=== PATIENT | female | born 1930 | race Caucasian/White ===

== ENCOUNTER 2016-12-15 14:51 | Inpatient (IN) | payer OTHER, MEDICARE ==
[2016-12-15] VITALS (9 sets, daily range): BP systolic 120–192; BP diastolic 62–75; PULSE 74–122; RESP 18–22; TEMP 96.5–97.3; O2SAT 94–98
[~2016-12-15] VITALS: Ht 160 cm; Wt 73.6 kg
[~2016-12-15 14:51] MED LIST: ADVA100A INH; ALPR0.25 PO; AMBI10TA PO; ASPI81TA82 PO; ATEN-100 PO; ATOR20TA42 PO; CALCTAB32 PO; COQ-100C5 PO; COZA25TA PO; FISH1000 PO; GLUCTAB PO; LEVO100T4 PO; NITR.4 SL; PREG100 PO; RANI150T PO; TIOT18I INH
[2016-12-15] MEDS ORDERED: methylPREDNISolone SOD SUCC 125 MG/2 ML VIAL IV PUSH ONE (15:15)
[2016-12-15] MEDS ORDERED: ADVA115A INH (15:17)
[2016-12-15] MEDS ORDERED: ALPR0.25 PO (15:17)
[2016-12-15] MEDS ORDERED: NITR1SUB3 SL (15:17)
[2016-12-15] MEDS ORDERED: VITA500T49 PO (15:17)
[2016-12-15] MEDS ORDERED: LYRI50CA PO (15:17)
[2016-12-15] MEDS ORDERED: CALC600T25 PO (15:17)
[2016-12-15] MEDS ORDERED: ASPI81CH CHEW (15:17)
[2016-12-15] MEDS ORDERED: ATEN25TA PO (15:17)
[2016-12-15] MEDS ORDERED: MULT1TAB46 PO (15:17)
[2016-12-15] MEDS ORDERED: FISH1200 PO (15:17)
[2016-12-15] MEDS ORDERED: ATOR10TA15 PO (15:17)
[2016-12-15] MEDS ORDERED: METF500T4 PO (15:17)
[2016-12-15] MEDS ORDERED: CHOL1CAP6 PO (15:17)
--- NOTE | 2016-12-15 15:21 | PD ---
HPI Chief Complaint: Respiratory Symptoms Time Seen by Provider: 15:07 Travel History International Travel<30 days: No Contact w/Intl Traveler<30days: No Traveled to known affect area: No History of Present Illness HPI This 86-year-old female is complaining of shortness of breath and cough. She's been having symptoms since about last Friday. She is not aware of any fever or chills. She has been told that she has COPD. She has never smoked and has no occupational exposure. She is seeing Dr. Diane for cardiac evaluation. She says she had an ultrasound normal. She went to an urgent care center and was given albuterol with minimal improvement. She is not having chest pain now. [facility] Past Medical History Cardiovascular Problems: Yes High Cholesterol: Yes Chest Pain: Yes COPD: Yes Coronary Artery Disease: Yes Diabetes: Yes Patient Takes Glucophage: Yes Diminished Hearing: No GERD: Yes Hypertension: Yes Respiratory: Yes (COPD) Immunizations Current: No Thyroid Disease: Yes Influenza Vaccination: Yes ?: Not Past Surgical History Abdominal Surgery: Yes (hiatal hernia repair) Section: Yes (1958,1963) Cholecystectomy: Yes (1964) Hysterectomy: Yes (1964) Other Surgery: Yes (partial thyroidectomy) Social History Alcohol Use: No Tobacco Use: No Substance Use: No Allergies-Medications (Allergen,Severity, Reaction): Coded Allergies: Penicillin (Verified Allergy, Severe, RASH, 12/15/16) Reported Meds & Prescriptions Reported Meds & Active Scripts Active Reported Atorvastatin (Atorvastatin Calcium) 10 Mg Tab 10 Mg PO HS Vitamin D-3 (Cholecalciferol) 1,000 Unit Cap 1 Tab PO DAILY Vitamin B12 (Cyanocobalamin) 500 Mcg Tab 1,000 Mcg PO DAILY Fish Oil 1200 mg ([place]-3 Fatty Acids) 1 Cap Cap 1 Tab PO DAILY Multi Vitamin Daily (Multiple Vitamin) 1 Tab Tab 1 Tab PO DAILY Calcium (Calcium Carbonate) 600 Mg Tab 1 Tab PO DAILY Advair Hfa 12 GM Inh (Fluticasone-Salmeterol 12 GM Inh) 115-21 Mcg/Act Aer 2 Puff INH BID Nitroglycerin SL (Nitroglycerin) 0.4 Mg Subl 0.4 Mg SL DIRECTED PRN ONE TABLET UNDER THE TONGUE NEEDED FOR CHEST PAIN, MAY REPEAT EVERY FIVE MINUTES FOR A TOTAL OF 3 DOSES OR CALL 911 IF NO RELIEF Alprazolam 0.25 Mg Tab 0.25 Mg PO Q4H PRN Atenolol 25 Mg Tab 25 Mg PO DAILY Lyrica (Pregabalin) 50 Mg Cap 50 Mg PO TID Aspirin 81 Mg Chew 81 Mg CHEW DAILY Metformin ER (Metformin HCl) 500 Mg Terrance 500 Mg PO DAILY With evening meal Review of Systems General / Constitutional: No: Fever, Chills Eyes: No: Diploplia HENT: No: Headaches, Vertigo, Rhinorrhea Cardiovascular: No: Chest Pain or Discomfort, Palpitations Respiratory: Positive: Cough, Shortness of Breath, Wheezing, No: Hemoptysis Gastrointestinal: No: Nausea, Vomiting Genitourinary: No: Frequency, Dysuria Musculoskeletal: No: Myalgias Skin: No Rash, No Itching Neurologic: No: Weakness, Dizziness Physical Exam Narrative GENERAL: Well-developed female SKIN: Focused skin assessment warm/dry. HEAD: Atraumatic. Normocephalic. EYES: Pupils equal and round. No scleral icterus. No injection or drainage. ENT: No nasal bleeding or discharge. Mucous membranes pink and moist. NECK: Trachea midline. No JVD. CARDIOVASCULAR: Regular rate and rhythm. No murmur appreciated. RESPIRATORY: There is accessory muscle use. There is bilateral expiratory wheezing. Breath sounds equal bilaterally. GASTROINTESTINAL: Abdomen soft, non-tender, nondistended. Hepatic and splenic margins not palpable. MUSCULOSKELETAL: No obvious deformities. No clubbing. No cyanosis. No edema. NEUROLOGICAL: Awake and alert. No obvious cranial nerve deficits. Motor grossly within normal limits. Normal speech. PSYCHIATRIC: Appropriate mood and affect; insight and judgment normal. Data Data Last Documented VS Vital Signs Date Time Temp Pulse Resp B/P Pulse Ox O2 Delivery O2 Flow Rate FiO2 12/15/16 16:03 98 21 12/15/16 15:36 74 20 183/73 Room Air 12/15/16 14:52 97.3 Orders Electrocardiogram (12/15/16 15:14) Complete Blood Count With Diff (12/15/16 15:14) Comprehensive Metabolic Panel (12/15/16 15:14) Troponin I (12/15/16 15:14) B-Type Natriuretic Peptide (12/15/16 15:14) Prothrombin Time / Inr (Pt) (12/15/16 15:14) Act Partial Throm Time (Ptt) (12/15/16 15:14) D-Dimer (12/15/16 15:14) Magnesium (Mg) (12/15/16 15:14) Thyroid Stimulating Hormone (12/15/16 15:14) Chest, Single Ap (12/15/16 15:14) Methylprednisolone So Succ Inj (Solumedr (12/15/16 15:15) Albuterol-Ipratropium Neb (Duoneb Neb) (12/15/16 15:45) Albuterol-Ipratropium Neb (Duoneb Neb) (12/15/16 16:00) Labs Laboratory Tests Test 12/15/16 15:30 White Blood Count 5.7 TH/MM3 Red Blood Count 4.71 MIL/MM3 Hemoglobin 14.5 GM/DL Hematocrit 43.3 % Mean Corpuscular Volume 91.9 FL Mean Corpuscular Hemoglobin 30.9 PG Mean Corpuscular Hemoglobin 33.6 % Concent Red Cell Distribution Width 13.8 % Platelet Count 160 TH/MM3 Mean Platelet Volume 8.7 FL Neutrophils (%) (Auto) 49.6 % Lymphocytes (%) (Auto) 27.9 % Monocytes (%) (Auto) 13.7 % Eosinophils (%) (Auto) 7.7 % Basophils (%) (Auto) 1.1 % Neutrophils # (Auto) 2.8 TH/MM3 Lymphocytes # (Auto) 1.6 TH/MM3 Monocytes # (Auto) 0.8 TH/MM3 Eosinophils # (Auto) 0.4 TH/MM3 Basophils # (Auto) 0.1 TH/MM3 CBC Comment DIFF FINAL Differential Comment Prothrombin Time 11.3 SEC Prothromb Time International 1.0 RATIO Ratio Activated Partial 26.4 SEC Thromboplast Time D-Dimer Quantitative (PE/DVT) 0.57 MG/L FEU Sodium Level 143 MEQ/L Potassium Level 4.2 MEQ/L Chloride Level 109 MEQ/L Carbon Dioxide Level 23.9 MEQ/L Anion Gap 10 MEQ/L Blood Urea Nitrogen 15 MG/DL Creatinine 1.10 MG/DL Estimat Glomerular Filtration 47 ML/MIN Rate Random Glucose 100 MG/DL Calcium Level 9.0 MG/DL Magnesium Level 2.0 MG/DL Total Bilirubin 0.6 MG/DL Aspartate Amino Transf 49 U/L (AST/SGOT) Alanine Aminotransferase 48 U/L (ALT/SGPT) Alkaline Phosphatase 73 U/L Troponin I LESS THAN 0.02 NG/ML B-Type Natriuretic Peptide 134 PG/ML Total Protein 7.1 GM/DL Albumin 3.5 GM/DL MDM Medical Decision Making Medical Screen Exam Complete: Yes Emergency Medical Condition: Yes Medical Record Reviewed: Yes Differential Diagnosis Differential includes COPD exacerbation, CHF, PE Narrative Course Lab work and x-ray has been ordered. Results will be checked by oncoming physician who will determine disposition Ariel Marie MD Dec 15, 2016 15:21
[2016-12-15 15:42] LABS: AUTOMATED NEUTROPHIL # 2.8 TH/MM3 (1.8-7.7); BASOPHIL # 0.1 TH/MM3 (0-0.2); BASOPHIL % 1.1 % (0.0-2.0); EOSINOPHIL # 0.4 TH/MM3 (0-0.4); EOSINOPHIL % 7.7 % (0.0-4.0); HEMATOCRIT 43.3 % (35.0-46.0); HEMO FLAGS DIFF FINAL; LYMPH % 27.9 % (9.0-44.0); LYMPHOCYTE # 1.6 TH/MM3 (1.0-4.8); MEAN CELL VOLUME 91.9 FL (80.0-100.0); MEAN CORPUSCULAR HEMOGLOBIN 30.9 PG (27.0-34.0); MEAN CORPUSCULAR HGB CONC 33.6 % (32.0-36.0); MONO % 13.7 % (0.0-8.0); NEUT % 49.6 % (16.0-70.0); PLATELET COUNT 160 TH/MM3 (150-450); RED BLOOD COUNT 4.71 MIL/MM3 (4.00-5.30); RED CELL DISTRIBUTION WIDTH 13.8 % (11.6-17.2); WHITE BLOOD COUNT 5.7 TH/MM3 (4.0-11.0)
[2016-12-15] MEDS ORDERED: RESP: ALBUTEROL 2.5 MG/IPRATROPIUM 0.5 MG NEB (SCH) NEB ONE (15:45)
[2016-12-15 15:51] LABS: CHLORIDE 109 MEQ/L (98-107); POTASSIUM 4.2 MEQ/L (3.5-5.1); SODIUM (NA) 143 MEQ/L (136-145)
[2016-12-15 15:55] LABS: ANION GAP 10 MEQ/L (5-15); BICARBONATE 23.9 MEQ/L (21.0-32.0)
[2016-12-15 15:56] LABS: BLOOD UREA NITROGEN 15 MG/DL (7-18)
--- NOTE | 2016-12-15 15:57 | RADHPO ---
EXAM DATE/TIME: 12/15/2016 15:40 [facility] COMPARISON: No previous studies available for comparison. INDICATIONS : Short of breath MEDICAL HISTORY : Chronic obstructive pulmonary disease. SURGICAL HISTORY : Thyroid ENCOUNTER: Initial ACUITY: 1 day PAIN SCORE: 0/10 LOCATION: Bilateral chest FINDINGS: Mild left lower lobe airspace disease. Postsurgical features in the left medial inferior hemithorax. Cardiomediastinal contours are within normal limits given portable technique. Bony thorax is grossly intact. CONCLUSION: 1. Mild left lower lobe airspace disease, likely atelectasis. Developing airspace infection cannot be excluded in the appropriate clinical setting. Sahil Perry MD on December 15, 2016 at 15:54 Board Certified Radiologist. This report was verified electronically.
[2016-12-15 15:59] LABS: ALT (GPT) 48 U/L (10-53); APTT (PATIENT) 26.4 SEC (24.3-30.1); AST (GOT) 49 U/L (15-37); GLOMERULAR FILTRATION RATE 47 ML/MIN (>89); PROTHROMBIN TIME - PATIENT 11.3 SEC (9.8-11.6)
[2016-12-15 16:00] LABS: TOTAL BILIRUBIN ADULT 0.6 MG/DL (0.2-1.0)
[2016-12-15] MEDS ORDERED: RESP: ALBUTEROL 2.5 MG/IPRATROPIUM 0.5 MG NEB (SCH) INH ONE (16:00)
[2016-12-15 16:01] LABS: ALKALINE PHOSPHATASE 73 U/L (45-117)
--- NOTE | 2016-12-15 16:06 | PD ---
Physical Exam Narrative Patient was seen by ED physician signed out to me. Data Data Last Documented VS Vital Signs Date Time Temp Pulse Resp B/P Pulse Ox O2 Delivery O2 Flow Rate FiO2 12/15/16 16:45 20 97 Room Air 12/15/16 16:38 90 192/71 12/15/16 16:03 21 12/15/16 14:52 97.3 Orders Electrocardiogram (12/15/16 15:14) Complete Blood Count With Diff (12/15/16 15:14) Comprehensive Metabolic Panel (12/15/16 15:14) Troponin I (12/15/16 15:14) B-Type Natriuretic Peptide (12/15/16 15:14) Prothrombin Time / Inr (Pt) (12/15/16 15:14) Act Partial Throm Time (Ptt) (12/15/16 15:14) D-Dimer (12/15/16 15:14) Magnesium (Mg) (12/15/16 15:14) Thyroid Stimulating Hormone (12/15/16 15:14) Chest, Single Ap (12/15/16 15:14) Methylprednisolone So Succ Inj (Solumedr (12/15/16 15:15) Albuterol-Ipratropium Neb (Duoneb Neb) (12/15/16 15:45) Albuterol-Ipratropium Neb (Duoneb Neb) (12/15/16 16:00) Ct Pulmonary Angiogram (12/15/16 16:28) Lorazepam Inj (Ativan Inj) (12/15/16 16:45) Iohexol 350 Inj (Omnipaque 350 Inj) (12/15/16 17:33) Levofloxacin 750 Mg Premix Inj (Levaquin (12/15/16 18:00) Labs Laboratory Tests Test 12/15/16 15:30 White Blood Count 5.7 TH/MM3 Red Blood Count 4.71 MIL/MM3 Hemoglobin 14.5 GM/DL Hematocrit 43.3 % Mean Corpuscular Volume 91.9 FL Mean Corpuscular Hemoglobin 30.9 PG Mean Corpuscular Hemoglobin 33.6 % Concent Red Cell Distribution Width 13.8 % Platelet Count 160 TH/MM3 Mean Platelet Volume 8.7 FL Neutrophils (%) (Auto) 49.6 % Lymphocytes (%) (Auto) 27.9 % Monocytes (%) (Auto) 13.7 % Eosinophils (%) (Auto) 7.7 % Basophils (%) (Auto) 1.1 % Neutrophils # (Auto) 2.8 TH/MM3 Lymphocytes # (Auto) 1.6 TH/MM3 Monocytes # (Auto) 0.8 TH/MM3 Eosinophils # (Auto) 0.4 TH/MM3 Basophils # (Auto) 0.1 TH/MM3 CBC Comment DIFF FINAL Differential Comment Prothrombin Time 11.3 SEC Prothromb Time International 1.0 RATIO Ratio Activated Partial 26.4 SEC Thromboplast Time D-Dimer Quantitative (PE/DVT) 0.57 MG/L FEU Sodium Level 143 MEQ/L Potassium Level 4.2 MEQ/L Chloride Level 109 MEQ/L Carbon Dioxide Level 23.9 MEQ/L Anion Gap 10 MEQ/L Blood Urea Nitrogen 15 MG/DL Creatinine 1.10 MG/DL Estimat Glomerular Filtration 47 ML/MIN Rate Random Glucose 100 MG/DL Calcium Level 9.0 MG/DL Magnesium Level 2.0 MG/DL Total Bilirubin 0.6 MG/DL Aspartate Amino Transf 49 U/L (AST/SGOT) Alanine Aminotransferase 48 U/L (ALT/SGPT) Alkaline Phosphatase 73 U/L Troponin I LESS THAN 0.02 NG/ML B-Type Natriuretic Peptide 134 PG/ML Total Protein 7.1 GM/DL Albumin 3.5 GM/DL Thyroid Stimulating Hormone 0.499 uIU/ML 3rd Gen [facility] Supervised Visit with JACEY: No Interpretation(s) 1626 PM. Last Impressions Chest X-Ray 12/15/16 1514 Signed Impressions: Service Date/Time: Thursday, December 15, 2016 15:40 - CONCLUSION: 1. Mild left lower lobe airspace disease, likely atelectasis. Developing airspace infection cannot be excluded in the appropriate clinical setting. Sahil Perry MD 1626 PM. CBC within normal limit. CMP within normal limit. Creatinine 1.10. BNP 134. Cardiac enzymes are normal. D-dimer 0.57. Differential Diagnosis Differential diagnoses include acute exacerbation COPD, bronchitis, pneumonia, PE, pneumothorax. Narrative Course Patient was seen by ED physician and signed out to me. Albuterol with Atrovent unit dose treatment 3. Solu-Medrol 125 Mg IV. Ativan 0.5 mg IV given. Levaquin 750 mg IV given. Diagnosis Primary Impression: COPD with acute exacerbation Additional Impression: Pneumonia Qualified Code: J18.9 - Pneumonia of both lungs due to infectious organism, unspecified part of lung Admitting Information Admitting Physician Requests: Admit Alden Márquez MD Dec 15, 2016 16:06
[2016-12-15] MEDS ORDERED: LORazepam 2 MG/ML VIAL IV PUSH ONE (16:45)
[2016-12-15] MEDS: METFORMIN HOLD POST IV CONTRAST SCH (17:25)
[2016-12-15] MEDS ORDERED: IOHEXOL 350 MG/ML 10 ML VIAL (for RAD DIAG) IV ONE (17:33)
--- NOTE | 2016-12-15 17:49 | RADHPO ---
EXAM DATE/TIME: 12/15/2016 17:18 [facility] COMPARISON: CHEST SINGLE AP, December 15, 2016, 15:40. INDICATIONS : Short of breath. Evaluate for embolism. IV CONTRAST: 65 cc Omnipaque 350 (iohexol) IV RADIATION DOSE: 13.65 CTDIvol (mGy) MEDICAL HISTORY : Chronic obstructive pulmonary disease. Gastroesophageal reflux disease. Hypertension.Diabetes. SURGICAL HISTORY : Cholecystectomy. Hysterectomy.Hiatal hernia repair. ENCOUNTER: Initial ACUITY: 1 day PAIN SCALE: 0/10 LOCATION: chest TECHNIQUE: Volumetric scanning of the chest was performed using a pulmonary embolism protocol MIP images were re constructed. Using automated exposure control and adjustment of the mA and/or kV according to patien t size, radiation dose was kept as low as reasonably achievable to obtain optimal diagnostic quality images. FINDINGS: PULMONARY ARTERIES: No filling defects are seen in the pulmonary arteries through the segmental level. LUNGS: There is dependent atelectasis bilaterally with linear area of atelectasis or scar in the left lower lobe. There is an ovoid area of groundglass opacity in the left upper lobe measuring 2 cm and another ovoid area of groundglass opacity in the right lower lobe measuring 17 mm. PLEURAE: There is no pleural thickening or pleural effusion. MEDIASTINUM: Heart great vessels demonstrate no acute finding. There is coronary artery calcification and severe a therosclerotic disease of the decent thoracic aorta. There is borderline enlarged lymph nodes in the left hilar region. MUSCULOSKELETAL: There are degenerative changes of the spine and chronic left rib changes are present but no acute oss eous abnormality is visualized. MISCELLANEOUS: There is mild intrahepatic bile duct dilatation. Patient is post cholecystectomy. Small hiatal hernia is present. There are surgical clips near the GE junction that cause beam hardening artifact. CONCLUSION: 1. No PE is identified. 2. Ovoid areas of groundglass attenuation in the right lower lobe and left upper lobe may represent a n inflammatory process. Suggest a three-month followup chest CT to confirm resolution. 3. Severe coronary artery calcification and atherosclerotic disease of the aorta. Leonardo Watters MD on December 15, 2016 at 17:42 Board Certified Radiologist. This report was verified electronically.
[2016-12-15] MEDS ORDERED: LEVOFLOXACIN 750 MG PREMIX INJ 150 ML IV ONE (18:00)
[2016-12-15] MEDS ORDERED: SODIUM CHLORIDE 0.9% FLUSH 10 ML FLUSH IVF PRN (18:00)
[2016-12-15] MEDS ORDERED: RESP: ALBUTEROL 2.5 MG/3 ML NEB (PRN) NEB (18:00)
[2016-12-15] MEDS ORDERED: cloNIDine HCL 0.1 MG TAB PO ONE (18:00)
[2016-12-15] MEDS ORDERED: ACETAMINOPHEN 325 MG TAB PO PRN ×2 (18:00→18:15)
[2016-12-15] MEDS ORDERED: ONDANSETRON HCL 4 MG/2 ML VIAL IV PRN (18:00)
[2016-12-15] MEDS ORDERED: SENNOSIDES 8.6 MG TAB PO PRN (18:15)
[2016-12-15] MEDS ORDERED: SODIUM CHLORIDE 0.9% FLUSH 10 ML FLUSH IV FLUSH PRN (18:15)
[2016-12-15] MEDS ORDERED: LACTULOSE SYRUP 20 GM/30 ML CUP PO PRN (18:15)
[2016-12-15] MEDS ORDERED: NALOXONE HCL 0.4 MG/ML AMP IV PRN (18:15)
[2016-12-15] MEDS ORDERED: MAGNESIUM HYDROXIDE SUSP 30 ML CUP PO PRN (18:15)
[2016-12-15] MEDS ORDERED: BISACODYL 10 MG SUPP RECTAL PRN (18:15)
--- NOTE | 2016-12-15 18:38 | HHI.HP ---
[facility] Zi Campa MD Admission Diagnosis acute exacerbation of COPD. Pneumonia. Diagnoses: (1) COPD with acute exacerbation Diagnosis: Principal (2) Pneumonia Diagnosis: Principal (3) Dysphagia Diagnosis: Principal (4) RIOS (acute kidney injury) Diagnosis: Principal Chief Complaint: "trouble breathing, cough" Travel History International Travel<30 Days: No Contact w/Intl Traveler <30 Da: No Traveled to Known Affected Are: No History of Present Illness Written by Harriett Santiago PA-C acting as scribe for Dr. Marsh on 12/15/16 at ~0625. 86-year-old female with history of COPD, coronary artery disease, hyperlipidemia, hypertension, GERD, diabetes, thyroid disease, and anxiety presents with complaint of trouble breathing and cough. She states she started not feeling well on Friday and then coughed all night on . States cough is nonproductive. She states she went to a clinic but was sent to the emergency department. Admits to shortness of breath. She denies any chest pain currently aside from when she eats. When we walked into the room the patient had just eaten something and it felt like it was stuck. Patient states she chokes on her food every time she eats. She does admit to a history of chest pain for which she takes nitroglycerin. She states last she had chest pain; she states that it is one pain that she gets substernally. She denies having this type of pain today. She denies any fevers, chills, night sweats. Denies nausea or vomiting. Denies any dysuria. She does admit to an ache behind her eyes. She has never had a GI workup. Review of Systems Except as stated in HPI: all other systems reviewed are Neg Past Family Social History Past Medical History COPD Coronary artery disease Hyperlipidemia Hypertension Diabetes GERD Thyroid disease Past Surgical History Hiatal hernia repair in 1961 2 Cholecystectomy Hysterectomy Partial thyroidectomy Reported Medications Atorvastatin (Atorvastatin Calcium) 10 Mg Tab 10 Mg PO HS Vitamin D-3 (Cholecalciferol) 1,000 Unit Cap 1 Tab PO DAILY Vitamin B12 (Cyanocobalamin) 500 Mcg Tab 1,000 Mcg PO DAILY Fish Oil 1200 mg ([place]-3 Fatty Acids) 1 Cap Cap 1 Tab PO DAILY Multi Vitamin Daily (Multiple Vitamin) 1 Tab Tab 1 Tab PO DAILY Calcium (Calcium Carbonate) 600 Mg Tab 1 Tab PO DAILY Advair Hfa 12 GM Inh (Fluticasone-Salmeterol 12 GM Inh) 115-21 Mcg/Act Aer 2 Puff INH BID Nitroglycerin SL (Nitroglycerin) 0.4 Mg Subl 0.4 Mg SL DIRECTED PRN ONE TABLET UNDER THE TONGUE NEEDED FOR CHEST PAIN, MAY REPEAT EVERY FIVE MINUTES FOR A TOTAL OF 3 DOSES OR CALL 911 IF NO RELIEF Alprazolam 0.25 Mg Tab 0.25 Mg PO Q4H PRN Atenolol 25 Mg Tab 25 Mg PO DAILY Lyrica (Pregabalin) 50 Mg Cap 50 Mg PO TID Aspirin 81 Mg Chew 81 Mg CHEW DAILY Metformin ER (Metformin HCl) 500 Mg Terrance 500 Mg PO DAILY With evening meal Allergies: Coded Allergies: Penicillin (Verified Allergy, Severe, RASH, 12/15/16) Family History Mother of pancreatic cancer. Father of stomach cancer. Brother also had pancreatic cancer. Social History Patient denies any history of cigarette smoking but was exposed to secondhand smoke when her was alive. He smoked cigars. Denies alcohol use. Denies illicit drug use. Physical Exam Vital Signs Vital Signs Date Time Temp Pulse Resp B/P Pulse Ox O2 Delivery O2 Flow Rate FiO2 12/15/16 16:45 20 97 Room Air 12/15/16 16:38 22 97 Aerosol Mask 12/15/16 16:38 90 20 192/71 98 Room Air 12/15/16 16:03 98 21 12/15/16 15:36 74 20 183/73 96 Room Air 12/15/16 15:09 22 96 Room Air 12/15/16 14:52 97.3 84 18 156/71 96 Physical Exam GENERAL: This is a pleasant elderly well-nourished, well-developed patient, in no apparent distress. SKIN: No rashes, ecchymoses or lesions. HEAD: Atraumatic. Normocephalic. EYES: Pupils equal round. No scleral icterus. No injection or drainage. ENT: Uvula midline. Airway patent. NECK: Trachea midline. CARDIOVASCULAR: Tachycardic rate 115 and regular rhythm. RESPIRATORY: Cough on exam. Diffuse wheezing with crackles at the right base. GASTROINTESTINAL: Abdomen soft, non-tender, nondistended. MUSCULOSKELETAL: No lower extremity edema bilaterally per NEUROLOGICAL: Awake and alert. Normal speech. Laboratory Laboratory Tests Test 12/15/16 15:30 White Blood Count 5.7 Red Blood Count 4.71 Hemoglobin 14.5 Hematocrit 43.3 Mean Corpuscular Volume 91.9 Mean Corpuscular Hemoglobin 30.9 Mean Corpuscular Hemoglobin 33.6 Concent Red Cell Distribution Width 13.8 Platelet Count 160 Mean Platelet Volume 8.7 Neutrophils (%) (Auto) 49.6 Lymphocytes (%) (Auto) 27.9 Monocytes (%) (Auto) 13.7 Eosinophils (%) (Auto) 7.7 Basophils (%) (Auto) 1.1 Neutrophils # (Auto) 2.8 Lymphocytes # (Auto) 1.6 Monocytes # (Auto) 0.8 Eosinophils # (Auto) 0.4 Basophils # (Auto) 0.1 CBC Comment DIFF FINAL Differential Comment Prothrombin Time 11.3 Prothromb Time International 1.0 Ratio Activated Partial 26.4 Thromboplast Time D-Dimer Quantitative (PE/DVT) 0.57 Sodium Level 143 Potassium Level 4.2 Chloride Level 109 Carbon Dioxide Level 23.9 Anion Gap 10 Blood Urea Nitrogen 15 Creatinine 1.10 Estimat Glomerular Filtration 47 Rate Random Glucose 100 Calcium Level 9.0 Magnesium Level 2.0 Total Bilirubin 0.6 Aspartate Amino Transf 49 (AST/SGOT) Alanine Aminotransferase 48 (ALT/SGPT) Alkaline Phosphatase 73 Troponin I LESS THAN 0.02 B-Type Natriuretic Peptide 134 Total Protein 7.1 Albumin 3.5 Thyroid Stimulating Hormone 0.499 3rd Gen Result Diagram: 12/15/16 1530 12/15/[address] Angiography 12/15/16 1628 Signed Impressions: Service Date/Time: Thursday, December 15, 2016 17:18 - CONCLUSION: 1. No PE is identified. 2. Ovoid areas of groundglass attenuation in the right lower lobe and left upper lobe may represent an inflammatory process. Suggest a three- month followup chest CT to confirm resolution. 3. Severe coronary artery calcification and atherosclerotic disease of the aorta. Leonardo Watters MD Chest X-Ray 12/15/16 1514 Signed Impressions: Service Date/Time: Thursday, December 15, 2016 15:40 - CONCLUSION: 1. Mild left lower lobe airspace disease, likely atelectasis. Developing airspace infection cannot be excluded in the appropriate clinical setting. Sahil Perry MD Assessment and Plan Assessment and Plan 86-year-old female with: COPD exacerbation/pneumonia: CT without PE, pneumonia indicated. Wheezing and crackles on exam. Patient is afebrile. -DuoNeb's every 4 hours with albuterol every 2 hours as needed for wheezing or shortness of breath. -Solu-Medrol 40 mg every 8 hours -Continue home Advair. -Levaquin IV -Oxygen as needed Dysphagia: Patient has persistent dysphagia when eating. She visibly was choking on food feeling a globus sensation when we walked into the room. -Will keep patient nothing by mouth -Start IV fluids -GI consult RIOS: Chronic 1.10. Although previous lab for comparison is 2010 with normal creatinine. -IV fluids -Recheck am BMP -Avoid nephrotoxins Diabetes: -Hold metformin due to contrast received -Bedside Accu-Cheks with low dose sliding scale insulin Other chronic medical problems include coronary artery disease, hypertension, hyperlipidemia, thyroid disease, anxiety, GERD. -Continue home medications, but hold nitroglycerin. RN to alert physician if patient develops chest pain. GI prophylaxis: Pepcid, constipation medication protocol. DVT prevention: Heparin subcutaneous This note was transcribed by jami ROBERT I, Dr. Peter Marsh personally performed the history, physical exam, and medical decision making; and confirmed the accuracy of the information in the transcribed note. Authenticated by Dr. Peter Marsh on 12/15/16 at 19:11. Discussed Condition With ED physician, RN, patient Physician Certification 2 Midnight Certification Type: Admission for Inpatient Services Order for Inpatient Services The services are ordered in accordance with Medicare regulations or non- Medicare payer requirements, as applicable. In the case of services not specified as inpatient-only, they are appropriately provided as inpatient services in accordance with the 2-midnight benchmark. Estimated LOS (days): 2 days is the estimated time the patient will need to remain in the hospital, assuming treatment plan goals are met and no additional complications. Post-Hospital Plan: Not yet determined Problem Qualifiers (1) Pneumonia: Qualified Code: J18.9 - Pneumonia of both lungs due to infectious organism, unspecified part of lung Harriett Santiago Dec 15, 2016 18:38 Peter Marsh MD Dec 15, 2016 19:11
[2016-12-15] MEDS ORDERED: DEXTROSE 50% IN WATER 50 ML VIAL(D50) IV PRN (18:45)
[2016-12-15] MEDS ORDERED: GLUCAGON 1 MG/ML VIAL OTHER PRN (18:45)
[2016-12-15] MEDS ORDERED: SODIUM CHLOR 0.9% 1000 ML INJ 1,000 ML IV SCH (19:00)
[2016-12-15] MEDS: INSULIN ASPART SUPPLEMENTAL SCALE SQ SCH (19:57)
[2016-12-15] MEDS: HEPARIN SODIUM - SQ 10,000 UNITS/ML VIAL SQ SCH (19:58)
[2016-12-15] MEDS: RESP: ALBUTEROL 2.5 MG/IPRATROPIUM 0.5 MG NEB (SCH) NEB ×2 (20:30→23:21)
[2016-12-15] MEDS ORDERED: SODIUM CHLORIDE 0.9% FLUSH 10 ML FLUSH IV FLUSH SCH (21:00)
[2016-12-15] MEDS: DOCUSATE SODIUM 50 MG/SENNA 8.6 MG TAB PO SCH (21:00)
[2016-12-15] MEDS: SODIUM CHLORIDE 0.9% FLUSH 10 ML FLUSH IV FLUSH SCH (23:07)
[2016-12-15] MEDS: ALPRAZolam 0.25 MG TAB PO PRN (23:07)
[2016-12-15] MEDS: ATORVASTATIN 10 MG TAB PO SCH (23:07)
[2016-12-15] MEDS: methylPREDNISolone SOD SUCC 40 MG/1 ML VIAL IV PUSH SCH (23:08)
[2016-12-16] VITALS (9 sets, daily range): BP systolic 113–131; BP diastolic 58–80; PULSE 93–122; RESP 18–21; TEMP 95.6–97.3; O2SAT 93–97
[2016-12-16] MEDS: RESP: LEVALBUTEROL HYDROCHLORIDE 1.25 MG/3 ML NEB (SCH) NEB ×6 (00:20→20:13)
[2016-12-16] MEDS: methylPREDNISolone SOD SUCC 40 MG/1 ML VIAL IV PUSH SCH ×3 (05:52→21:03)
[2016-12-16] MEDS: INSULIN ASPART SUPPLEMENTAL SCALE SQ SCH ×4 (06:38→21:00)
[2016-12-16 06:48] LABS: POTASSIUM 3.6 MEQ/L (3.5-5.1)
[2016-12-16 06:53] LABS: BICARBONATE 17.3 MEQ/L (21.0-32.0)
[2016-12-16] MEDS: PREGABALIN 25 MG CAP PO SCH ×3 (07:48→17:13)
[2016-12-16] MEDS ORDERED: NS + KCL 20 MEQ INJ 1,000 ML IV SCH (08:00)
[2016-12-16] MEDS ORDERED: [UNRECOGNIZED DRUG - OTHER] INH SCH (09:00)
[2016-12-16] MEDS ORDERED: SALMETEROL INH SCH (09:00)
[2016-12-16] MEDS ORDERED: FATTY ACIDS PO SCH (09:00)
[2016-12-16] MEDS ORDERED: OMEGA PO SCH (09:00)
[2016-12-16] MEDS: CALCIUM CARBONATE 1.25 GM (CA 500 MG) TAB PO SCH (09:00)
[2016-12-16] MEDS: SODIUM CHLORIDE 0.9% FLUSH 10 ML FLUSH IV FLUSH SCH ×2 (09:00→21:04)
[2016-12-16] MEDS ORDERED: FLUTICASONE PROPIONATE INH SCH (09:00)
[2016-12-16] MEDS: DOCUSATE SODIUM 50 MG/SENNA 8.6 MG TAB PO SCH ×2 (09:00→21:00)
[2016-12-16] MEDS: CYANOCOBALAMIN 1,000 MCG TAB PO SCH (10:32)
[2016-12-16] MEDS: ASPIRIN 81 MG CHEW TAB CHEW SCH (10:32)
[2016-12-16] MEDS: ATENOLOL 25 MG TAB PO SCH (10:33)
[2016-12-16] MEDS: MULTIVITAMIN TAB PO SCH (10:34)
[2016-12-16] MEDS: CHOLECALCIFEROL (VIT D3) 1000 UNIT TAB PO SCH (10:34)
[2016-12-16] MEDS: FAMOTIDINE 20 MG TAB PO SCH (10:34)
[2016-12-16] MEDS: HEPARIN SODIUM - SQ 10,000 UNITS/ML VIAL SQ SCH ×2 (10:35→21:04)
--- NOTE | 2016-12-16 13:55 | HHI.PR ---
Subjective Remarks Follow up pneumonia. The patient states that she feels a little better today. Still with dyspnea, but improving. Cough is improved. Denies chest pain, nausea , vomiting. The patient states that she has not had difficulty swallowing before yesterday, which is different than what she told us previously. Objective Vitals Vital Signs Date Time Temp Pulse Resp B/P Pulse Ox O2 Delivery O2 Flow Rate FiO2 12/16/16 12:00 96.0 107 20 130/65 95 12/16/16 11:45 97 21 12/16/16 08:48 20 12/16/16 08:00 97.3 99 20 123/62 93 12/16/16 07:43 93 21 12/16/16 04:00 95.7 108 18 113/63 96 12/16/16 00:00 96.6 122 18 119/58 96 12/15/16 20:30 97 21 12/15/16 20:22 96.5 122 18 120/62 96 12/15/16 20:15 108 19 155/70 95 Room Air 12/15/16 19:05 109 20 180/75 94 Room Air 12/15/16 18:44 112 20 161/64 96 Room Air 12/15/16 16:45 20 97 Room Air 12/15/16 16:38 22 97 Aerosol Mask 12/15/16 16:38 90 20 192/71 98 Room Air 12/15/16 16:03 98 21 12/15/16 15:36 74 20 183/73 96 Room Air 12/15/16 15:09 22 96 Room Air 12/15/16 14:52 97.3 84 18 156/71 96 I/O 12/15/16 12/15/16 12/15/16 12/16/16 12/16/16 12/16/16 06:59 14:59 22:59 06:59 14:59 22:59 Intake Total 336 ml Balance 336 ml Intake IV Total 336 ml # Voids 3 5 # Bowel Movements 0 0 Result Diagram: 12/15/16 1530 12/16/16 [address] Angiography 12/15/16 1628 Signed Impressions: Service Date/Time: Thursday, December 15, 2016 17:18 - CONCLUSION: 1. No PE is identified. 2. Ovoid areas of groundglass attenuation in the right lower lobe and left upper lobe may represent an inflammatory process. Suggest a three- month followup chest CT to confirm resolution. 3. Severe coronary artery calcification and atherosclerotic disease of the aorta. Leonardo Watters MD Chest X-Ray 12/15/16 1514 Signed Impressions: Service Date/Time: Thursday, December 15, 2016 15:40 - CONCLUSION: 1. Mild left lower lobe airspace disease, likely atelectasis. Developing airspace infection cannot be excluded in the appropriate clinical setting. Sahil Perry MD Objective Remarks General: Elderly female in no acute distress. Sitting up in a chair. Heart: Regular rate and rhythm. No murmur. Lungs: Scattered wheeze. Breathing is nonlabored. Abdomen: Soft, nontender, nondistended. Extremities: No lower extremity edema. Psych: Alert and oriented. Procedures None Urinary Catheter: No Vascular Central Line Catheter: No A/P Problem List: (1) COPD with acute exacerbation ICD Code: J44.1 Status: Acute (2) Pneumonia ICD Code: J18.9 Status: Acute (3) Dysphagia ICD Code: R13.10 Status: Acute (4) RIOS (acute kidney injury) ICD Code: N17.9 Status: Acute Assessment and Plan 1. COPD exacerbation, pneumonia: CT shows no PE, but does indicate pneumonia. Clinically improving. Continue antibiotics, bronchodilators, steroids. Patient remains afebrile. Supplemental oxygen as needed. 2. Dysphagia: Patient passed swallow evaluation with speech therapy. She now denies having choking episodes previously or any dysphagia. Patient's daughter is at bedside and confirms that she is able to eat without difficulty swallowing. GI consult cancelled. 3. Acute kidney injury: 4. Diabetes mellitus: Metformin on hold. Monitor Accu-Cheks and grossly scale insulin. 5. GI prophylaxis: Pepcid. 6. DVT prophylaxis: Subcutaneous heparin. Discharge Planning Possible discharge home tomorrow if patient continues to improve clinically. Problem Qualifiers (1) Pneumonia: Qualified Code: J18.9 - Pneumonia of both lungs due to infectious organism, unspecified part of lung Peter Marsh MD Dec 16, 2016 13:55
--- NOTE | 2016-12-16 14:24 | EKG ---
Date Performed: 12/15/2016 Time Performed: 15:23:14 PTAGE: 86 years EKG: Sinus rhythm Since previous tracing, no significant change noted NORMAL ECG PREVIOUS TRACING : 10/07/2012 13.39 DOCTOR: Romain Carter Interpretating Date/Time 12/16/2016 14:20:27
[2016-12-16] MEDS: METFORMIN HOLD POST IV CONTRAST SCH (17:25)
[2016-12-16] MEDS: ALPRAZolam 0.25 MG TAB PO PRN (21:03)
[2016-12-16] MEDS: ATORVASTATIN 10 MG TAB PO SCH (21:03)
[2016-12-17] VITALS (9 sets, daily range): BP systolic 138–142; BP diastolic 59–79; PULSE 83–110; RESP 16–20; TEMP 95.9–98.7; O2SAT 93–96
[2016-12-17] MEDS: RESP: LEVALBUTEROL HYDROCHLORIDE 1.25 MG/3 ML NEB (SCH) NEB ×7 (00:11→23:17)
[2016-12-17] MEDS: methylPREDNISolone SOD SUCC 40 MG/1 ML VIAL IV PUSH SCH ×2 (05:25→20:30)
[2016-12-17] MEDS: RESP: LEVALBUTEROL HYDROCHLORIDE 1.25 MG/3 ML NEB (PRN) NEB ×4 (07:23→15:34)
[2016-12-17] MEDS: CALCIUM CARBONATE 1.25 GM (CA 500 MG) TAB PO SCH (09:00)
[2016-12-17] MEDS: DOCUSATE SODIUM 50 MG/SENNA 8.6 MG TAB PO SCH ×2 (09:00→20:30)
[2016-12-17] MEDS: CHOLECALCIFEROL (VIT D3) 1000 UNIT TAB PO SCH (09:05)
[2016-12-17] MEDS: MULTIVITAMIN TAB PO SCH (09:05)
[2016-12-17] MEDS: ATENOLOL 25 MG TAB PO SCH (09:05)
[2016-12-17] MEDS: INSULIN ASPART SUPPLEMENTAL SCALE SQ SCH ×4 (09:05→20:34)
[2016-12-17] MEDS: FAMOTIDINE 20 MG TAB PO SCH (09:05)
[2016-12-17] MEDS: CYANOCOBALAMIN 1,000 MCG TAB PO SCH (09:06)
[2016-12-17] MEDS: PREGABALIN 25 MG CAP PO SCH ×3 (09:06→17:43)
[2016-12-17] MEDS: HEPARIN SODIUM - SQ 10,000 UNITS/ML VIAL SQ SCH ×2 (09:07→20:28)
[2016-12-17] MEDS: ASPIRIN 81 MG CHEW TAB CHEW SCH (09:07)
[2016-12-17] MEDS: SODIUM CHLORIDE 0.9% FLUSH 10 ML FLUSH IV FLUSH SCH ×2 (09:07→20:28)
--- NOTE | 2016-12-17 11:04 | HHI.PR ---
Subjective Remarks Follow-up COPD exacerbation/community acquired bacterial pneumonia 12/17/16-patient seen and examined, currently afebrile ad continue to have wheezing. States, she is weak with ambulation. Complains of nonproductive cough Objective Vitals Vital Signs Date Time Temp Pulse Resp B/P Pulse Ox O2 Delivery O2 Flow Rate FiO2 12/17/16 10:16 20 12/17/16 08:21 95.9 110 19 142/68 93 12/17/16 07:28 96 21 12/17/16 04:00 96.5 104 20 142/73 96 12/17/16 00:00 96.2 92 16 139/67 95 12/16/16 20:13 95 21 12/16/16 20:00 95.6 93 18 131/80 95 12/16/16 16:00 96.2 107 21 131/61 93 12/16/16 12:00 96.0 107 20 130/65 95 12/16/16 11:45 97 21 I/O 12/16/16 12/16/16 12/16/16 12/17/16 12/17/16 12/17/16 07:00 15:00 23:00 07:00 15:00 23:00 Intake Total 336 ml 480 ml 240 ml 580 ml Balance 336 ml 480 ml 240 ml 580 ml Intake Oral 480 ml 240 ml 580 ml IV Total 336 ml # Voids 5 2 1 1 # Bowel Movements 0 0 0 Result Diagram: 12/15/16 1530 12/16/16 [address] Angiography 12/15/16 1628 Signed Impressions: Service Date/Time: Thursday, December 15, 2016 17:18 - CONCLUSION: 1. No PE is identified. 2. Ovoid areas of groundglass attenuation in the right lower lobe and left upper lobe may represent an inflammatory process. Suggest a three- month followup chest CT to confirm resolution. 3. Severe coronary artery calcification and atherosclerotic disease of the aorta. Leonardo Watters MD Chest X-Ray 12/15/16 1514 Signed Impressions: Service Date/Time: Thursday, December 15, 2016 15:40 - CONCLUSION: 1. Mild left lower lobe airspace disease, likely atelectasis. Developing airspace infection cannot be excluded in the appropriate clinical setting. Sahil Perry MD Objective Remarks GENERAL: NAD SKIN: Warm and dry. HEAD: Normocephalic. EYES: No scleral icterus. No injection or drainage. NECK: Supple, trachea midline. No JVD or lymphadenopathy. CARDIOVASCULAR: Regular rate and rhythm without murmurs, gallops, or rubs. RESPIRATORY: Breath sounds equal bilaterally. No accessory muscle use.expiratory wheezing GASTROINTESTINAL: Abdomen soft, non-tender, nondistended. MUSCULOSKELETAL: No cyanosis, or edema. BACK: Nontender without obvious deformity. No CVA tenderness. Procedures None A/P Problem List: (1) COPD with acute exacerbation ICD Code: J44.1 Status: Acute (2) Community acquired bacterial pneumonia ICD Code: J15.9 Status: Acute (3) Dysphagia ICD Code: R13.10 Status: Acute (4) RIOS (acute kidney injury) ICD Code: N17.9 Status: Acute Assessment and Plan 86-year-old female with 1. COPD exacerbation, pneumonia: CT shows no PE. Change Solu-Medrol to 20 mg IV every 12H, Levaquin 250mg IV Q48H and continue with bronchodilator, maintain oxygen saturation above 92%. Start Mucinex 2. Community-acquired bacterial pneumonia: Change Levaquin to 250 mg Q48H 3. Dysphagia: Resolved 4. Acute kidney injury: Avoid all nephrotoxic, monitor BUN and creatinine 5. Diabetes mellitus: Metformin on hold. Monitor Accu-Cheks and continue with scale insulin. 6. GI prophylaxis: Pepcid. 7. DVT prophylaxis: Subcutaneous heparin. Shahzad Pedro MD Dec 17, 2016 11:04
[2016-12-17] MEDS: guaiFENesin/DEXTROMETHORPHAN 200 MG/20 MG/10 ML CUP PO PRN ×2 (13:34→21:59)
[2016-12-17] MEDS: LEVOFLOXACIN 250 MG PREMIX INJ 50 ML IV SCH (16:19)
[2016-12-17] MEDS ORDERED: LEVOFLOXACIN 750 MG PREMIX INJ 150 ML IV SCH (18:00)
[2016-12-17 18:10] LABS: BICARBONATE 20.2 MEQ/L (21.0-32.0)
[2016-12-17] MEDS: guaiFENesin E.R. 600 MG TAB PO SCH (20:30)
[2016-12-17] MEDS: ATORVASTATIN 10 MG TAB PO SCH (20:30)
[2016-12-17] MEDS: ALPRAZolam 0.25 MG TAB PO PRN (20:55)
[2016-12-18] VITALS (11 sets, daily range): BP systolic 119–193; BP diastolic 54–87; PULSE 20–104; RESP 18–24; TEMP 96.9–98.6; O2SAT 93–97
[2016-12-18] MEDS: RESP: LEVALBUTEROL HYDROCHLORIDE 1.25 MG/3 ML NEB (SCH) NEB ×6 (03:23→23:16)
[2016-12-18] MEDS: guaiFENesin/DEXTROMETHORPHAN 200 MG/20 MG/10 ML CUP PO PRN ×2 (05:29→22:38)
[2016-12-18] MEDS: ALPRAZolam 0.25 MG TAB PO PRN ×2 (05:29→22:38)
[2016-12-18 06:47] LABS: AUTOMATED NEUTROPHIL # 17.8 TH/MM3 (1.8-7.7); BASOPHIL # 0.1 TH/MM3 (0-0.2); BASOPHIL % 0.4 % (0.0-2.0); HEMATOCRIT 40.1 % (35.0-46.0); LYMPHOCYTE # 0.4 TH/MM3 (1.0-4.8); MEAN CELL VOLUME 91.4 FL (80.0-100.0); MEAN CORPUSCULAR HEMOGLOBIN 31.1 PG (27.0-34.0); MONO % 3.3 % (0.0-8.0); NEUT % 94.3 % (16.0-70.0); PLATELET COUNT 154 TH/MM3 (150-450); RED BLOOD COUNT 4.39 MIL/MM3 (4.00-5.30); RED CELL DISTRIBUTION WIDTH 14.1 % (11.6-17.2); WHITE BLOOD COUNT 18.9 TH/MM3 (4.0-11.0)
[2016-12-18 06:54] LABS: POTASSIUM 4.7 MEQ/L (3.5-5.1)
[2016-12-18 06:58] LABS: BICARBONATE 21.4 MEQ/L (21.0-32.0)
[2016-12-18 07:00] LABS: HEMO FLAGS AUTO DIFF
[2016-12-18 07:26] LABS: SCAN/DIFF AUTO DIFF CONFIRMED
[2016-12-18] MEDS: PREGABALIN 25 MG CAP PO SCH ×3 (08:22→17:39)
[2016-12-18] MEDS: FAMOTIDINE 20 MG TAB PO SCH (08:22)
[2016-12-18] MEDS: MULTIVITAMIN TAB PO SCH (08:22)
[2016-12-18] MEDS: CALCIUM CARBONATE 1.25 GM (CA 500 MG) TAB PO SCH (08:22)
[2016-12-18] MEDS: ATENOLOL 25 MG TAB PO SCH (08:22)
[2016-12-18] MEDS: guaiFENesin E.R. 600 MG TAB PO SCH ×2 (08:23→22:02)
[2016-12-18] MEDS: methylPREDNISolone SOD SUCC 40 MG/1 ML VIAL IV PUSH SCH (08:23)
[2016-12-18] MEDS: HEPARIN SODIUM - SQ 10,000 UNITS/ML VIAL SQ SCH (08:23)
[2016-12-18] MEDS: ASPIRIN 81 MG CHEW TAB CHEW SCH (08:23)
[2016-12-18] MEDS: SODIUM CHLORIDE 0.9% FLUSH 10 ML FLUSH IV FLUSH SCH ×2 (08:24→22:02)
[2016-12-18] MEDS: DOCUSATE SODIUM 50 MG/SENNA 8.6 MG TAB PO SCH ×2 (08:24→21:00)
--- NOTE | 2016-12-18 09:42 | HHI.PR ---
Subjective Remarks Follow-up COPD exacerbation/community acquired bacterial pneumonia 12/17/16-patient seen and examined, currently afebrile ad continue to have wheezing. States, she is weak with ambulation. Complains of nonproductive cough 12/18/16-patient seen and examined complains of generalized weakness this morning. Positive for cough production and currently afebrile. Daughter by the bedside Objective Vitals Vital Signs Date Time Temp Pulse Resp B/P Pulse Ox O2 Delivery O2 Flow Rate FiO2 12/18/16 08:00 98.1 98 19 150/67 93 12/18/16 07:35 97 21 12/18/16 04:00 97.0 104 18 150/68 93 12/18/16 00:00 96.9 87 18 119/54 96 12/17/16 21:00 104 12/17/16 20:00 96.2 83 18 140/79 96 12/17/16 19:25 95 21 12/17/16 18:54 18 12/17/16 16:41 96.1 93 19 142/73 95 12/17/16 12:22 98.7 98 19 138/59 95 I/O 12/17/16 12/17/16 12/17/16 12/18/16 12/18/16 12/18/16 07:00 15:00 23:00 07:00 15:00 23:00 Intake Total 580 ml 700 ml Balance 580 ml 700 ml Intake Oral 580 ml 700 ml # Voids 1 3 # Bowel Movements 0 0 Result Diagram: 12/18/16 0610 12/18/16 [address] Angiography 12/15/16 1628 Signed Impressions: Service Date/Time: Thursday, December 15, 2016 17:18 - CONCLUSION: 1. No PE is identified. 2. Ovoid areas of groundglass attenuation in the right lower lobe and left upper lobe may represent an inflammatory process. Suggest a three- month followup chest CT to confirm resolution. 3. Severe coronary artery calcification and atherosclerotic disease of the aorta. Leonardo Watters MD Chest X-Ray 12/15/16 1514 Signed Impressions: Service Date/Time: Thursday, December 15, 2016 15:40 - CONCLUSION: 1. Mild left lower lobe airspace disease, likely atelectasis. Developing airspace infection cannot be excluded in the appropriate clinical setting. Sahil Perry MD Objective Remarks GENERAL: NAD SKIN: Warm and dry. HEAD: Normocephalic. EYES: No scleral icterus. No injection or drainage. NECK: Supple, trachea midline. No JVD or lymphadenopathy. CARDIOVASCULAR: Regular rate and rhythm without murmurs, gallops, or rubs. RESPIRATORY: Breath sounds equal bilaterally. No accessory muscle use. GASTROINTESTINAL: Abdomen soft, non-tender, nondistended. MUSCULOSKELETAL: No cyanosis, or edema. BACK: Nontender without obvious deformity. No CVA tenderness. Procedures None A/P Problem List: (1) COPD with acute exacerbation ICD Code: J44.1 Status: Acute (2) Community acquired bacterial pneumonia ICD Code: J15.9 Status: Acute (3) Dysphagia ICD Code: R13.10 Status: Acute (4) RIOS (acute kidney injury) ICD Code: N17.9 Status: Acute Assessment and Plan 86-year-old female with 1. COPD exacerbation, pneumonia: CT shows no PE. Switch Solu-Medrol to prednisone 20 mg daily, continue Levaquin 250mg IV Q48H, bronchodilator, maintain oxygen saturation above 92%. Continue Mucinex 2. Community-acquired bacterial pneumonia: Currently on Levaquin 250 mg Q48H 3. Dysphagia: Resolved 4. Acute kidney injury: Avoid all nephrotoxic, monitor BUN and creatinine 5. Diabetes mellitus: Metformin on hold. Monitor Accu-Cheks and continue with scale insulin. 6. GI prophylaxis: Pepcid. 7. DVT prophylaxis: Subcutaneous heparin. 8. Leukocytosis: Secondary to steroid Addendum: Patient experienced acute onset midsternal chest pain at approx 1600 today, upon entering the room patient was pushing on the mid sternum region, anxious and mild diaphoretic. no Nausea, vomiting, radiation of pain. Stat cardiac workup ordered, EKG without any changes, acute Troponin elevation 0.41 as compared to normal troponin upon admission. CTA of chest on admission did not indicate any pulmonary emboli. Contacted patient's cardiology Dr Diane and notified him of patients condition. He agreed with initial treatment thus far. Patient is on ASA, Atenolol, Statin, added Oxygen, Nitropaste, therapeutic renal dosed Lovenox, Morphine for pain control. Continue to trend cardiac enzymes and if continued troponin elevation, patient will need to be transferred to [facility] for likely cardiac cath. Shahzad Pedro MD Dec 18, 2016 09:42 Peter Younger Dec 18, 2016 18:56
[2016-12-18] MEDS: CYANOCOBALAMIN 1,000 MCG TAB PO SCH (10:23)
[2016-12-18] MEDS: CHOLECALCIFEROL (VIT D3) 1000 UNIT TAB PO SCH (10:23)
[2016-12-18] MEDS: INSULIN ASPART SUPPLEMENTAL SCALE SQ SCH ×3 (11:00→21:00)
[2016-12-18] MEDS ORDERED: MORPHINE SULFATE 4 MG/ML INJ IV PUSH PRN (16:45)
[2016-12-18] MEDS ORDERED: NITROGLYCERIN 0.4 MG SL 25 TABS/BTL SL PRN (16:45)
[2016-12-18] MEDS: NITROGLYCERIN 0.4 MG SL 25 TABS/BTL SL PRN ×2 (17:02→17:07)
[2016-12-18] MEDS: RESP: LEVALBUTEROL HYDROCHLORIDE 1.25 MG/3 ML NEB (PRN) NEB (17:19)
[2016-12-18 17:52] LABS: CKMB 10.1 NG/ML (0.5-3.6)
[2016-12-18] MEDS: NITROGLYCERIN 2% OINT 1 GM PACKET TOPICAL SCH (18:39)
--- NOTE | 2016-12-18 18:51 | HHI.PR ---
Addendum to Inpatient Note Addendum Reason: Additional Documentation Additional Information Patient with complaint atypical chest pain CTA 12/15 negative for PE ACS rule out per protocol with serial cardiac enzyme and EKG start Nitro paste, Lovenox, BB,statin, Morphine PRN Consider Cardiology consultation Shahzad Pedro MD Dec 18, 2016 18:50
[2016-12-18] MEDS: ENOXAPARIN SODIUM 40 MG/0.4 ML SYRINGE SQ SCH (22:00)
[2016-12-18] MEDS: ATORVASTATIN 10 MG TAB PO SCH (22:01)
[2016-12-18 23:17] LABS: CKMB 6.9 NG/ML (0.5-3.6)
[2016-12-19] VITALS (9 sets, daily range): BP systolic 114–202; BP diastolic 53–95; PULSE 60–112; RESP 18–26; TEMP 97.4–100.2; O2SAT 92–98
[2016-12-19] MEDS: NITROGLYCERIN 2% OINT 1 GM PACKET TOPICAL SCH ×5 (00:32→23:36)
[2016-12-19] MEDS: RESP: LEVALBUTEROL HYDROCHLORIDE 1.25 MG/3 ML NEB (SCH) NEB ×6 (03:21→23:37)
[2016-12-19] MEDS: guaiFENesin/DEXTROMETHORPHAN 200 MG/20 MG/10 ML CUP PO PRN (05:02)
[2016-12-19] MEDS: ALPRAZolam 0.25 MG TAB PO PRN ×3 (05:02→20:17)
[2016-12-19] MEDS: INSULIN ASPART SUPPLEMENTAL SCALE SQ SCH ×4 (05:18→21:00)
[2016-12-19] MEDS: RESP: LEVALBUTEROL HYDROCHLORIDE 1.25 MG/3 ML NEB (PRN) NEB (05:28)
[2016-12-19 06:12] LABS: CKMB 6.9 NG/ML (0.5-3.6)
[2016-12-19] MEDS ORDERED: LORazepam 2 MG/ML VIAL IV PUSH ONE (06:30)
[2016-12-19] MEDS: guaiFENesin E.R. 600 MG TAB PO SCH ×2 (08:40→20:17)
[2016-12-19] MEDS: MULTIVITAMIN TAB PO SCH (08:40)
[2016-12-19] MEDS: predniSONE 20 MG TAB PO SCH (08:40)
[2016-12-19] MEDS: CYANOCOBALAMIN 1,000 MCG TAB PO SCH (08:40)
[2016-12-19] MEDS: ASPIRIN 81 MG CHEW TAB CHEW SCH (08:40)
[2016-12-19] MEDS: CHOLECALCIFEROL (VIT D3) 1000 UNIT TAB PO SCH (08:41)
[2016-12-19] MEDS: DOCUSATE SODIUM 50 MG/SENNA 8.6 MG TAB PO SCH ×2 (08:41→20:23)
[2016-12-19] MEDS: FAMOTIDINE 20 MG TAB PO SCH (08:41)
[2016-12-19] MEDS: CALCIUM CARBONATE 1.25 GM (CA 500 MG) TAB PO SCH (08:42)
[2016-12-19] MEDS: ATENOLOL 25 MG TAB PO SCH (08:42)
[2016-12-19] MEDS: ENOXAPARIN SODIUM 40 MG/0.4 ML SYRINGE SQ SCH ×2 (08:47→20:22)
[2016-12-19] MEDS: SODIUM CHLORIDE 0.9% FLUSH 10 ML FLUSH IV FLUSH SCH ×2 (08:48→20:15)
[2016-12-19] MEDS: PREGABALIN 25 MG CAP PO SCH ×3 (08:49→17:38)
--- NOTE | 2016-12-19 09:42 | HHI.PR ---
Subjective Remarks Follow-up COPD exacerbation/community acquired bacterial pneumonia 12/17/16-patient seen and examined, currently afebrile ad continue to have wheezing. States, she is weak with ambulation. Complains of nonproductive cough 12/18/16-patient seen and examined complains of generalized weakness this morning. Positive for cough production and currently afebrile. Daughter by the bedside 12/19/16-patient seen and examined, diagnosis with non-ST elevation [place] for which cardiology has been consulted. Patient states she is feeling very weak today however denies any chest pain. Objective Vitals Vital Signs Date Time Temp Pulse Resp B/P Pulse Ox O2 Delivery O2 Flow Rate FiO2 12/19/16 09:16 95 Nasal Cannula 2.00 12/19/16 08:00 98.7 98 24 147/70 92 12/19/16 06:05 106 26 202/95 96 12/19/16 04:00 98.0 112 20 114/79 98 12/19/16 00:00 97.4 97 18 152/73 96 12/18/16 21:00 97 12/18/16 20:00 98.1 88 18 147/70 94 12/18/16 19:23 95 Nasal Cannula 2.00 12/18/16 18:39 20 12/18/16 17:20 95 Nasal Cannula 2.00 12/18/16 17:12 20 12/18/16 16:57 88 190/87 95 12/18/16 16:55 20 12/18/16 16:37 98.6 20 24 193/87 94 12/18/16 12:00 97.9 83 18 145/75 94 I/O 12/18/16 12/18/16 12/18/16 12/19/16 12/19/16 12/19/16 07:00 15:00 23:00 07:00 15:00 23:00 Intake Total 700 ml 400 ml 240 ml Balance 700 ml 400 ml 240 ml Intake Oral 700 ml 400 ml 240 ml # Voids 3 3 # Bowel Movements 0 0 Result Diagram: 12/18/16 0610 12/18/16 0610 Objective Remarks GENERAL: NAD SKIN: Warm and dry. HEAD: Normocephalic. EYES: No scleral icterus. No injection or drainage. NECK: Supple, trachea midline. No JVD or lymphadenopathy. CARDIOVASCULAR: Regular rate and rhythm without murmurs, gallops, or rubs. RESPIRATORY: Breath sounds equal bilaterally. No accessory muscle use. GASTROINTESTINAL: Abdomen soft, non-tender, nondistended. MUSCULOSKELETAL: No cyanosis, or edema. BACK: Nontender without obvious deformity. No CVA tenderness. Procedures None A/P Problem List: (1) COPD with acute exacerbation ICD Code: J44.1 Status: Acute (2) Community acquired bacterial pneumonia ICD Code: J15.9 Status: Acute (3) Dysphagia ICD Code: R13.10 Status: Acute (4) RIOS (acute kidney injury) ICD Code: N17.9 Status: Acute (5) Non-ST elevation AZ (NSTEMI) ICD Code: I21.4 Status: Acute Assessment and Plan 86-year-old female with 1. Non-ST elevation [place] Continue with Lovenox, beta tennille, statin, aspirin, Nitropaste pending consultation from cardiology Decision for stress test versus left heart catheterization per cardiology 2. COPD exacerbation, pneumonia: CT shows no PE. Currently on prednisone 20 mg daily, continue Levaquin 250mg IV Q48H, bronchodilator, maintain oxygen saturation above 92%. Continue Mucinex 3. Community-acquired bacterial pneumonia: Currently on Levaquin 250 mg Q48H 4. Dysphagia: Resolved 5. Acute kidney injury: Avoid all nephrotoxic, monitor BUN and creatinine 6. Diabetes mellitus: Metformin on hold. Monitor Accu-Cheks and continue with scale insulin. 7. GI prophylaxis: Pepcid. 8. DVT prophylaxis: Subcutaneous heparin. 9. Leukocytosis: Secondary to steroid Shahzad Pedro MD Dec 19, 2016 09:42
[2016-12-19] MEDS ORDERED: SODIUM CHLOR 0.9% 1000 ML INJ 1,000 ML IV SCH (09:45)
--- NOTE | 2016-12-19 13:24 | MB ---
cc: BYRON HERNADEZ MD DATE OF CONSULTATION 12/19/2016 REASON FOR CONSULTATION Elevated troponin. HISTORY OF PRESENT ILLNESS Ms. Valarie Quintana is an 86-year-old patient of my partner, Dr. Diane. She has had atypical chest pain for years and was scheduled for a nuclear stress test this week. She unfortunately had progressive nonproductive cough and presented to the emergency room. She was found to have pneumonia and her cardiac enzymes were elevated. Cardiology was subsequently consulted. The patient was fairly dyspneic and half of the history was from her daughters. They indicate that she has had sporadic chest pain for years. Then superimposed she began to have this nonproductive cough. The patient's chest pain in the past had been relieved with several nitroglycerin. PAST MEDICAL HISTORY 1. Hypertension. 2. Hyperlipidemia. 3. GERD. 4. COPD. 5. Her CAD diagnosis in the office records as listed as possible. She was noted to have a normal stress test in December of 2010. 6. Diabetes. 7. Hypothyroidism. OUTPATIENT MEDICATIONS 1. Advair. 2. Alprazolam. 3. Aspirin. 4. Atenolol. 5. Atorvastatin. 6. Levothyroxine. 7. Metformin. 8. Vitamins. CURRENT MEDICATIONS Per the record. FAMILY HISTORY Noncontributory. REVIEW OF SYSTEMS Except as mentioned in the HPI, all 12 systems are negative. PHYSICAL EXAMINATION VITAL SIGNS: 100.2, 97, 22, with 153/74. GENERAL: She is an elderly female who is in mild respiratory distress. LUNGS: She has audible rhonchi and wheezing. CARDIOVASCULAR EXAMINATION: She has a normal S1 and S2. I could not appreciate any murmurs, rubs or gallops. ABDOMEN: Soft. EXTREMITIES: Free from edema. CHEST X-RAY Left lower lobe airspace disease. CT angiogram shows severe coronary atherosclerosis. LAB VALUES Significant for serial troponins of 0.41/0.38/0.40. The serial MB percents are 3.2/2.8/2.8. Her creatinine is 1.2. White count is 18.9. EKG shows normal sinus rhythm with nonspecific ST-T wave changes. IMPRESSION AND RECOMMENDATIONS Elevated troponin - This is felt to represent a nonspecific elevation as her CK-MB percent is negative. There are no significant EKG changes. As well, she has not really had any chest pain episodes beyond her baseline. Additionally, she has had some BPs that are quite elevated at 202/95. Thus it may also represent a secondary NV from her hypertension and renal insufficiency with a creatinine of 1.4. In any case they do not wish aggressive measures at this time. I would continue to manage her conservatively. She had been scheduled as an outpatient for a nuclear stress test this week and had to cancel obviously as she has been hospitalized. Her and her daughters have apparently debated whether she should have the stress test at all. Thus at this point they are not even sure if they wish to proceed once she has recovered from her pneumonia. Pneumonia - She is on antibiotics per the primary team. Atypical chest pain - As above, this has been ongoing for many years without any real change in characteristics. They will let me know if they are interested in the stress test once she has recovered from this hospitalization. Byron Hernadez M.D. OPAL/CARMEN /12:54 PM /1:08 PM
--- NOTE | 2016-12-19 14:00 | EKG ---
Date Performed: 12/18/2016 Time Performed: 22:26:19 PTAGE: 86 years EKG: Sinus rhythm MODERATE ST DEPRESSION ABNORMAL ECG Compared to prior tracing no significant change PREVIOUS TRACING : 12/18/2016 16.51 DOCTOR: Ingrid Huber Interpretating Date/Time 12/19/2016 13:52:29
--- NOTE | 2016-12-19 14:01 | EKG ---
Date Performed: 12/19/2016 Time Performed: 04:48:18 PTAGE: 86 years EKG: Sinus rhythm WITH SINUS ARRHYTHMIA MODERATE ST DEPRESSION ABNORMAL ECG Compared to prior tracing no significant c ajay PREVIOUS TRACING : 12/18/2016 22.26 DOCTOR: Ingrid Huber Interpretating Date/Time 12/19/2016 13:52:50
--- NOTE | 2016-12-19 15:12 | EKG ---
Date Performed: 12/18/2016 Time Performed: 16:51:43 PTAGE: 86 years EKG: Sinus rhythm MODERATE ST DEPRESSION Compared to previous tracing, there's been an increase in the anterolateral S T segment changes ABNORMAL ECG PREVIOUS TRACING : 12/15/2016 15.23 DOCTOR: Ingrid Huber Interpretating Date/Time 12/19/2016 15:11:45
[2016-12-19] MEDS: LEVOFLOXACIN 250 MG PREMIX INJ 50 ML IV SCH (17:38)
[2016-12-19] MEDS: ATORVASTATIN 10 MG TAB PO SCH (20:17)
[2016-12-19] MEDS ORDERED: FUROSEMIDE 40 MG/4 ML VIAL IV PUSH ONE (22:30)
[2016-12-20] VITALS (9 sets, daily range): BP systolic 103–140; BP diastolic 62–74; PULSE 71–91; RESP 18–22; TEMP 96.6–98.1; O2SAT 93–96
[2016-12-20] MEDS: RESP: LEVALBUTEROL HYDROCHLORIDE 1.25 MG/3 ML NEB (PRN) NEB ×3 (03:36→13:04)
[2016-12-20] MEDS: NITROGLYCERIN 2% OINT 1 GM PACKET TOPICAL SCH ×2 (03:45→11:36)
[2016-12-20 06:51] LABS: AUTOMATED NEUTROPHIL # 7.7 TH/MM3 (1.8-7.7); BASOPHIL % 0.3 % (0.0-2.0); EOSINOPHIL % 0.2 % (0.0-4.0); HEMATOCRIT 42.4 % (35.0-46.0); LYMPH % 14.5 % (9.0-44.0); LYMPHOCYTE # 1.5 TH/MM3 (1.0-4.8); MEAN CELL VOLUME 91.3 FL (80.0-100.0); MEAN CORPUSCULAR HEMOGLOBIN 30.7 PG (27.0-34.0); MEAN CORPUSCULAR HGB CONC 33.6 % (32.0-36.0); MONO % 9.3 % (0.0-8.0); NEUT % 75.7 % (16.0-70.0); PLATELET COUNT 122 TH/MM3 (150-450); RED BLOOD COUNT 4.65 MIL/MM3 (4.00-5.30); RED CELL DISTRIBUTION WIDTH 13.7 % (11.6-17.2); WHITE BLOOD COUNT 10.1 TH/MM3 (4.0-11.0)
[2016-12-20 06:59] LABS: HEMO FLAGS DIFF FINAL
[2016-12-20] MEDS: INSULIN ASPART SUPPLEMENTAL SCALE SQ SCH ×4 (07:00→21:00)
[2016-12-20 07:17] LABS: BICARBONATE 25.5 MEQ/L (21.0-32.0)
[2016-12-20] MEDS: ENOXAPARIN SODIUM 40 MG/0.4 ML SYRINGE SQ SCH ×2 (08:11→21:13)
[2016-12-20] MEDS: CYANOCOBALAMIN 1,000 MCG TAB PO SCH (08:13)
[2016-12-20] MEDS: predniSONE 20 MG TAB PO SCH (08:13)
[2016-12-20] MEDS: MULTIVITAMIN TAB PO SCH (08:14)
[2016-12-20] MEDS: ATENOLOL 25 MG TAB PO SCH (08:14)
[2016-12-20] MEDS: guaiFENesin E.R. 600 MG TAB PO SCH ×2 (08:14→21:13)
[2016-12-20] MEDS: CHOLECALCIFEROL (VIT D3) 1000 UNIT TAB PO SCH (08:15)
[2016-12-20] MEDS: PREGABALIN 25 MG CAP PO SCH ×3 (08:15→17:34)
[2016-12-20] MEDS: ASPIRIN 81 MG CHEW TAB CHEW SCH (08:15)
[2016-12-20] MEDS: FAMOTIDINE 20 MG TAB PO SCH (08:15)
[2016-12-20] MEDS: SODIUM CHLORIDE 0.9% FLUSH 10 ML FLUSH IV FLUSH SCH ×2 (08:16→21:14)
[2016-12-20] MEDS: CALCIUM CARBONATE 1.25 GM (CA 500 MG) TAB PO SCH (08:17)
[2016-12-20] MEDS: DOCUSATE SODIUM 50 MG/SENNA 8.6 MG TAB PO SCH ×2 (08:18→21:13)
[2016-12-20] MEDS: ALPRAZolam 0.25 MG TAB PO PRN ×2 (08:22→17:37)
--- NOTE | 2016-12-20 11:02 | HHI.PR ---
Subjective Remarks Follow-up COPD exacerbation/community acquired bacterial pneumonia 12/17/16-patient seen and examined, currently afebrile ad continue to have wheezing. States, she is weak with ambulation. Complains of nonproductive cough 12/18/16-patient seen and examined complains of generalized weakness this morning. Positive for cough production and currently afebrile. Daughter by the bedside 12/19/16-patient seen and examined, diagnosis with non-ST elevation [place] for which cardiology has been consulted. Patient states she is feeling very weak today however denies any chest pain. 12/20/16-patient seen and examined, states she still feels weak ,complains now of cough production however currently afebrile Objective Vitals Vital Signs Date Time Temp Pulse Resp B/P Pulse Ox O2 Delivery O2 Flow Rate FiO2 12/20/16 09:12 95 Nasal Cannula 2.00 12/20/16 08:00 98.0 83 21 129/69 96 12/20/16 08:00 84 12/20/16 04:00 96.6 91 20 138/68 95 12/20/16 00:00 98.1 71 18 134/74 96 12/19/16 20:00 79 12/19/16 20:00 97.4 60 22 151/53 96 12/19/16 19:52 95 Nasal Cannula 2.00 12/19/16 16:00 99.7 96 20 141/77 94 12/19/16 12:00 100.2 97 22 153/74 94 I/O 12/19/16 12/19/16 12/19/16 12/20/16 12/20/16 12/20/16 07:00 15:00 23:00 07:00 15:00 23:00 Intake Total 240 ml 625 ml 525 ml 0 ml Balance 240 ml 625 ml 525 ml 0 ml Intake Oral 240 ml 625 ml IV Total 525 ml 0 ml # Voids 3 2 # Bowel Movements 0 1 Result Diagram: 12/20/16 0553 12/20/16 [address] Angiography 12/15/16 1628 Signed Impressions: Service Date/Time: Thursday, December 15, 2016 17:18 - CONCLUSION: 1. No PE is identified. 2. Ovoid areas of groundglass attenuation in the right lower lobe and left upper lobe may represent an inflammatory process. Suggest a three- month followup chest CT to confirm resolution. 3. Severe coronary artery calcification and atherosclerotic disease of the aorta. Leonardo Watters MD Chest X-Ray 12/15/16 1514 Signed Impressions: Service Date/Time: Thursday, December 15, 2016 15:40 - CONCLUSION: 1. Mild left lower lobe airspace disease, likely atelectasis. Developing airspace infection cannot be excluded in the appropriate clinical setting. Sahil Perry MD Objective Remarks GENERAL: NAD SKIN: Warm and dry. HEAD: Normocephalic. EYES: No scleral icterus. No injection or drainage. NECK: Supple, trachea midline. No JVD or lymphadenopathy. CARDIOVASCULAR: Regular rate and rhythm without murmurs, gallops, or rubs. RESPIRATORY: Breath sounds equal bilaterally. No accessory muscle use. Bilateral expiratory wheezing GASTROINTESTINAL: Abdomen soft, non-tender, nondistended. MUSCULOSKELETAL: No cyanosis, or edema. BACK: Nontender without obvious deformity. No CVA tenderness. Procedures None A/P Problem List: (1) COPD with acute exacerbation ICD Code: J44.1 Status: Acute (2) Community acquired bacterial pneumonia ICD Code: J15.9 Status: Acute (3) Dysphagia ICD Code: R13.10 Status: Acute (4) RIOS (acute kidney injury) ICD Code: N17.9 Status: Acute (5) Non-ST elevation [place] (NSTEMI) ICD Code: I21.4 Status: Acute Assessment and Plan 86-year-old female with 1. Non-ST elevation [place] Currently denies any chest pain Continue with Lovenox, beta tennille, statin, aspirin, Nitropaste pending consultation from cardiology Patient along with daughter have decided to go with medical management, therefore plan for Lexiscan stress test outpatient if needed Appreciate input from cardiology 2. COPD exacerbation, pneumonia: CT shows no PE. Currently on prednisone 20 mg daily however will switch to IV Solu-Medrol 20 mg every 12 hours, continue Levaquin 250mg IV Q48H, bronchodilator, maintain oxygen saturation above 92%. Continue Mucinex. Recheck chest x-ray 3. Community-acquired bacterial pneumonia: Currently on Levaquin 250 mg Q48H 4. Dysphagia: Resolved 5. Acute kidney injury: Avoid all nephrotoxic, monitor BUN and creatinine 6. Diabetes mellitus: Metformin on hold. Monitor Accu-Cheks and continue with scale insulin. 7. GI prophylaxis: Pepcid. 8. DVT prophylaxis: Subcutaneous heparin. 9. Leukocytosis: Secondary to steroid Shahzad Pedro MD Dec 20, 2016 11:02
[2016-12-20] MEDS: RESP: LEVALBUTEROL HYDROCHLORIDE 1.25 MG/3 ML NEB (SCH) NEB ×2 (16:20→20:08)
--- NOTE | 2016-12-20 17:33 | RADRPT ---
EXAM DATE/TIME: 12/20/2016 17:19 [facility] COMPARISON: CHEST SINGLE AP, December 15, 2016, 15:40. INDICATIONS : Congestion. MEDICAL HISTORY : Chronic obstructive pulmonary disease. Gastroesophageal reflux disease. Hypertension. Diabetes SURGICAL HISTORY : Cholecystectomy. Hysterectomy. Hiatal hernia repair ENCOUNTER: Subsequent ACUITY: 4 - 6 days PAIN SCORE: 2/10 LOCATION: Bilateral chest FINDINGS: Heart size is mildly enlarged. Minimal basilar density most factors of atelectasis. No effusions. No pneumothorax. Surgical clips in the lower chest. CONCLUSION: 1. Minimal basilar atelectasis or scarring. Mild cardiomegaly. No acute findings compared with November 28. Kevyn Diane MD on December 20, 2016 at 17:30 Board Certified Radiologist. This report was verified electronically.
[2016-12-20] MEDS: ATORVASTATIN 10 MG TAB PO SCH (21:13)
[2016-12-20] MEDS: methylPREDNISolone SOD SUCC 40 MG/1 ML VIAL IV PUSH SCH (21:14)
[2016-12-21] VITALS (7 sets, daily range): BP systolic 130–147; BP diastolic 63–77; PULSE 68–88; RESP 16–22; TEMP 96–97.7; O2SAT 94–97
[2016-12-21] MEDS: guaiFENesin/DEXTROMETHORPHAN 200 MG/20 MG/10 ML CUP PO PRN ×2 (02:52→20:07)
[2016-12-21] MEDS: RESP: LEVALBUTEROL HYDROCHLORIDE 1.25 MG/3 ML NEB (SCH) NEB ×4 (07:47→19:12)
[2016-12-21] MEDS: SODIUM CHLORIDE 0.9% FLUSH 10 ML FLUSH IV FLUSH SCH ×2 (09:00→22:00)
[2016-12-21] MEDS: CHOLECALCIFEROL (VIT D3) 1000 UNIT TAB PO SCH (09:42)
[2016-12-21] MEDS: PREGABALIN 25 MG CAP PO SCH ×3 (09:42→18:00)
[2016-12-21] MEDS: ALPRAZolam 0.25 MG TAB PO PRN ×2 (09:42→20:07)
[2016-12-21] MEDS: CYANOCOBALAMIN 1,000 MCG TAB PO SCH (09:43)
[2016-12-21] MEDS: guaiFENesin E.R. 600 MG TAB PO SCH ×2 (09:43→21:59)
[2016-12-21] MEDS: ASPIRIN 81 MG CHEW TAB CHEW SCH (09:43)
[2016-12-21] MEDS: FAMOTIDINE 20 MG TAB PO SCH (09:44)
[2016-12-21] MEDS: ATENOLOL 25 MG TAB PO SCH (09:44)
[2016-12-21] MEDS: MULTIVITAMIN TAB PO SCH (09:44)
[2016-12-21] MEDS: ENOXAPARIN SODIUM 40 MG/0.4 ML SYRINGE SQ SCH ×2 (09:44→22:01)
[2016-12-21] MEDS: methylPREDNISolone SOD SUCC 40 MG/1 ML VIAL IV PUSH SCH ×2 (09:45→21:59)
--- NOTE | 2016-12-21 10:12 | HHI.PR ---
Subjective Remarks Follow-up COPD exacerbation/community acquired bacterial pneumonia 12/17/16-patient seen and examined, currently afebrile ad continue to have wheezing. States, she is weak with ambulation. Complains of nonproductive cough 12/18/16-patient seen and examined complains of generalized weakness this morning. Positive for cough production and currently afebrile. Daughter by the bedside 12/19/16-patient seen and examined, diagnosis with non-ST elevation [place] for which cardiology has been consulted. Patient states she is feeling very weak today however denies any chest pain. 12/20/16-patient seen and examined, states she still feels weak ,complains now of cough production however currently afebrile 12/21/16-patient seen and examined, afebrile, improved cough production, she was up and walking with Even Though She States She Said she still feels weak Objective Vitals Vital Signs Date Time Temp Pulse Resp B/P Pulse Ox O2 Delivery O2 Flow Rate FiO2 12/21/16 08:00 96.9 69 20 130/65 95 12/21/16 07:35 94 Nasal Cannula 2.00 12/21/16 05:01 97.7 80 16 139/77 96 12/21/16 00:56 96.3 79 16 147/69 94 12/20/16 20:55 97.6 78 22 140/70 95 12/20/16 20:10 85 12/20/16 20:08 94 Nasal Cannula 2.00 12/20/16 16:00 98.0 91 21 135/66 94 12/20/16 12:00 98.0 79 20 103/62 93 I/O 12/20/16 12/20/16 12/20/16 12/21/16 12/21/16 12/21/16 07:00 15:00 23:00 07:00 15:00 23:00 Intake Total 0 ml Balance 0 ml IV Total 0 ml # Voids 3 0 # Bowel Movements 0 1 Result Diagram: 12/20/16 0553 12/20/16 0553 Objective Remarks GENERAL: NAD SKIN: Warm and dry. HEAD: Normocephalic. EYES: No scleral icterus. No injection or drainage. NECK: Supple, trachea midline. No JVD or lymphadenopathy. CARDIOVASCULAR: Regular rate and rhythm without murmurs, gallops, or rubs. RESPIRATORY: Breath sounds equal bilaterally. No accessory muscle use. Bilateral expiratory wheezing GASTROINTESTINAL: Abdomen soft, non-tender, nondistended. MUSCULOSKELETAL: No cyanosis, or edema. BACK: Nontender without obvious deformity. No CVA tenderness. Procedures None A/P Problem List: (1) COPD with acute exacerbation ICD Code: J44.1 Status: Acute (2) Community acquired bacterial pneumonia ICD Code: J15.9 Status: Acute (3) Dysphagia ICD Code: R13.10 Status: Acute (4) RIOS (acute kidney injury) ICD Code: N17.9 Status: Acute (5) Non-ST elevation [place] (NSTEMI) ICD Code: I21.4 Status: Acute Assessment and Plan 86-year-old female with 1. Non-ST elevation [place] Resolved Currently denies any chest pain Continue with Lovenox, beta tennille, statin, aspirin, Nitropaste Patient along with daughter have decided to go with medical management, therefore plan for Lexiscan stress test outpatient if needed Appreciate input from cardiology 2. COPD exacerbation, pneumonia: CT shows no PE. Currently on IV Solu-Medrol 20 mg every 12 hours, continue Levaquin 250mg IV Q48H, bronchodilator, maintain oxygen saturation above 92%. Continue Mucinex. Chest x-ray noted and review 3. Community-acquired bacterial pneumonia: Currently on Levaquin 250 mg Q48H 4. Dysphagia: Resolved 5. Acute kidney injury: Avoid all nephrotoxic, monitor BUN and creatinine 6. Diabetes mellitus: Metformin on hold. Monitor Accu-Cheks and continue with scale insulin. 7. GI prophylaxis: Pepcid. 8. DVT prophylaxis: Subcutaneous heparin. 9. Leukocytosis: Secondary to steroid Shahzad Pedro MD Dec 21, 2016 10:12
[2016-12-21] MEDS: INSULIN ASPART SUPPLEMENTAL SCALE SQ SCH ×2 (16:00→22:06)
[2016-12-21] MEDS: CALCIUM CARBONATE 1.25 GM (CA 500 MG) TAB PO SCH (17:42)
[2016-12-21] MEDS: DOCUSATE SODIUM 50 MG/SENNA 8.6 MG TAB PO SCH ×2 (17:42→21:00)
[2016-12-21] MEDS: LEVOFLOXACIN 250 MG PREMIX INJ 50 ML IV SCH (17:43)
[2016-12-21] MEDS: ATORVASTATIN 10 MG TAB PO SCH (21:59)
[2016-12-22] VITALS (11 sets, daily range): BP systolic 120–143; BP diastolic 58–77; PULSE 67–81; RESP 18–22; TEMP 96–98.1; O2SAT 94–100
[2016-12-22] MEDS: ALPRAZolam 0.25 MG TAB PO PRN ×3 (05:16→21:19)
[2016-12-22] MEDS: guaiFENesin/DEXTROMETHORPHAN 200 MG/20 MG/10 ML CUP PO PRN ×3 (05:16→21:19)
[2016-12-22 06:44] LABS: AUTOMATED NEUTROPHIL # 14.5 TH/MM3 (1.8-7.7); BASOPHIL % 0.1 % (0.0-2.0); EOSINOPHIL % 0.1 % (0.0-4.0); HEMATOCRIT 42.4 % (35.0-46.0); LYMPH % 7.2 % (9.0-44.0); LYMPHOCYTE # 1.2 TH/MM3 (1.0-4.8); MEAN CELL VOLUME 92.7 FL (80.0-100.0); MEAN CORPUSCULAR HEMOGLOBIN 31.1 PG (27.0-34.0); MEAN CORPUSCULAR HGB CONC 33.5 % (32.0-36.0); MONO % 5.5 % (0.0-8.0); NEUT % 87.1 % (16.0-70.0); PLATELET COUNT 161 TH/MM3 (150-450); RED BLOOD COUNT 4.58 MIL/MM3 (4.00-5.30); RED CELL DISTRIBUTION WIDTH 13.9 % (11.6-17.2); WHITE BLOOD COUNT 16.6 TH/MM3 (4.0-11.0)
[2016-12-22 06:52] LABS: HEMO FLAGS DIFF FINAL
[2016-12-22 06:57] LABS: POTASSIUM 4.7 MEQ/L (3.5-5.1)
[2016-12-22 07:05] LABS: BICARBONATE 26.6 MEQ/L (21.0-32.0)
[2016-12-22] MEDS: RESP: LEVALBUTEROL HYDROCHLORIDE 1.25 MG/3 ML NEB (SCH) NEB ×4 (07:41→20:21)
[2016-12-22] MEDS: ENOXAPARIN SODIUM 40 MG/0.4 ML SYRINGE SQ SCH ×2 (08:07→21:18)
[2016-12-22] MEDS: SODIUM CHLORIDE 0.9% FLUSH 10 ML FLUSH IV FLUSH SCH ×2 (08:07→21:19)
[2016-12-22] MEDS: predniSONE 10 MG TAB PO SCH (08:07)
[2016-12-22] MEDS: ASPIRIN 81 MG CHEW TAB CHEW SCH (08:07)
[2016-12-22] MEDS: FAMOTIDINE 20 MG TAB PO SCH (08:08)
[2016-12-22] MEDS: CHOLECALCIFEROL (VIT D3) 1000 UNIT TAB PO SCH (08:08)
[2016-12-22] MEDS: DOCUSATE SODIUM 50 MG/SENNA 8.6 MG TAB PO SCH ×2 (08:08→21:19)
[2016-12-22] MEDS: ATENOLOL 25 MG TAB PO SCH (08:08)
[2016-12-22] MEDS: CALCIUM CARBONATE 1.25 GM (CA 500 MG) TAB PO SCH (08:08)
[2016-12-22] MEDS: MULTIVITAMIN TAB PO SCH (08:08)
[2016-12-22] MEDS: CYANOCOBALAMIN 1,000 MCG TAB PO SCH (08:08)
[2016-12-22] MEDS: PREGABALIN 25 MG CAP PO SCH ×3 (08:08→21:18)
[2016-12-22] MEDS: guaiFENesin E.R. 600 MG TAB PO SCH ×2 (08:08→21:19)
[2016-12-22] MEDS: INSULIN ASPART SUPPLEMENTAL SCALE SQ SCH ×4 (08:14→21:00)
--- NOTE | 2016-12-22 10:43 | HHI.PR ---
Subjective Remarks Follow-up COPD exacerbation/community acquired bacterial pneumonia 12/17/16-patient seen and examined, currently afebrile ad continue to have wheezing. States, she is weak with ambulation. Complains of nonproductive cough 12/18/16-patient seen and examined complains of generalized weakness this morning. Positive for cough production and currently afebrile. Daughter by the bedside 12/19/16-patient seen and examined, diagnosis with non-ST elevation [place] for which cardiology has been consulted. Patient states she is feeling very weak today however denies any chest pain. 12/20/16-patient seen and examined, states she still feels weak ,complains now of cough production however currently afebrile 12/21/16-patient seen and examined, afebrile, improved cough production, she was up and walking with Even Though She States She Said she still feels weak 12/22/16-patient seen and examined, some expiratory wheezing otherwise stable. However she complains of the fact that she can bring her cough today Objective Vitals Vital Signs Date Time Temp Pulse Resp B/P Pulse Ox O2 Delivery O2 Flow Rate FiO2 12/22/16 08:00 97.2 67 20 136/60 95 12/22/16 07:49 96 Nasal Cannula 2.00 12/22/16 05:04 96.1 67 18 130/61 100 12/22/16 00:16 98.1 81 18 120/77 95 12/21/16 20:11 96.0 74 22 133/69 96 12/21/16 19:12 94 Nasal Cannula 2.00 12/21/16 12:00 88 12/21/16 12:00 96.8 68 22 134/63 97 12/21/16 12:00 96.8 68 22 134/63 97 I/O 12/21/16 12/21/16 12/21/16 12/22/16 12/22/16 12/22/16 07:00 15:00 23:00 07:00 15:00 23:00 Intake Total 725 ml Balance 725 ml Intake Oral 725 ml # Voids 3 0 3 # Bowel Movements 1 1 Result Diagram: 12/22/16 0602 12/22/16 0602 Imaging Last Impressions Chest X-Ray 12/20/16 0000 Signed Impressions: Service Date/Time: Tuesday, December 20, 2016 17:19 - CONCLUSION: 1. Minimal basilar atelectasis or scarring. Mild cardiomegaly. No acute findings compared with December 15. Kevyn Diane MD CT Angiography 12/15/16 1628 Signed Impressions: Service Date/Time: Thursday, December 15, 2016 17:18 - CONCLUSION: 1. No PE is identified. 2. Ovoid areas of groundglass attenuation in the right lower lobe and left upper lobe may represent an inflammatory process. Suggest a three- month followup chest CT to confirm resolution. 3. Severe coronary artery calcification and atherosclerotic disease of the aorta. Leonardo Watters MD Objective Remarks GENERAL: NAD SKIN: Warm and dry. HEAD: Normocephalic. EYES: No scleral icterus. No injection or drainage. NECK: Supple, trachea midline. No JVD or lymphadenopathy. CARDIOVASCULAR: Regular rate and rhythm without murmurs, gallops, or rubs. RESPIRATORY: Breath sounds equal bilaterally. No accessory muscle use. Bilateral expiratory wheezing GASTROINTESTINAL: Abdomen soft, non-tender, nondistended. MUSCULOSKELETAL: No cyanosis, or edema. BACK: Nontender without obvious deformity. No CVA tenderness. Procedures None A/P Problem List: (1) COPD with acute exacerbation ICD Code: J44.1 Status: Acute (2) Community acquired bacterial pneumonia ICD Code: J15.9 Status: Acute (3) Dysphagia ICD Code: R13.10 Status: Acute (4) RIOS (acute kidney injury) ICD Code: N17.9 Status: Acute (5) Non-ST elevation [place] (NSTEMI) ICD Code: I21.4 Status: Acute Assessment and Plan 86-year-old female with 1. Non-ST elevation [place] Resolved Currently denies any chest pain Continue with Lovenox, beta tennille, statin, aspirin, Nitropaste Patient along with daughter have decided to go with medical management, therefore plan for Lexiscan stress test outpatient if needed Appreciate input from cardiology 2. COPD exacerbation, pneumonia: CT shows no PE. DC IV Solu-Medrol 20 mg every 12 hours, continue Levaquin 250mg IV Q48H and starts prednisone 10 mg daily, bronchodilator, maintain oxygen saturation above 92%. Continue Mucinex. Chest x-ray noted and review 3. Community-acquired bacterial pneumonia: Currently on Levaquin 250 mg Q48H 4. Dysphagia: Resolved 5. Acute kidney injury: Improving. Avoid all nephrotoxic, monitor BUN and creatinine 6. Diabetes mellitus: Metformin on hold. Monitor Accu-Cheks and continue with scale insulin. 7. GI prophylaxis: Pepcid. 8. DVT prophylaxis: Subcutaneous heparin. 9. Leukocytosis: Secondary to steroid Shahzad Pedro MD Dec 22, 2016 10:43
[2016-12-22] MEDS: ATORVASTATIN 10 MG TAB PO SCH (21:19)
[2016-12-22] MEDS: NITROGLYCERIN 0.4 MG SL 25 TABS/BTL SL PRN (23:09)
[2016-12-23 05:20] VITALS: BP 120/57; PULSE 60; RESP 16; TEMP 97.8; O2SAT 94
[2016-12-23] MEDS: INSULIN ASPART SUPPLEMENTAL SCALE SQ SCH ×2 (05:44→11:53)
[2016-12-23 08:04] VITALS: BP 116/56; PULSE 58; RESP 17; TEMP 96.4; O2SAT 96
[2016-12-23] MEDS: CYANOCOBALAMIN 1,000 MCG TAB PO SCH (08:23)
[2016-12-23] MEDS: CALCIUM CARBONATE 1.25 GM (CA 500 MG) TAB PO SCH (08:24)
[2016-12-23] MEDS: ATENOLOL 25 MG TAB PO SCH (08:24)
[2016-12-23] MEDS: DOCUSATE SODIUM 50 MG/SENNA 8.6 MG TAB PO SCH (08:24)
[2016-12-23] MEDS: ASPIRIN 81 MG CHEW TAB CHEW SCH (08:24)
[2016-12-23] MEDS: FAMOTIDINE 20 MG TAB PO SCH (08:24)
[2016-12-23] MEDS: MULTIVITAMIN TAB PO SCH (08:24)
[2016-12-23] MEDS: PREGABALIN 25 MG CAP PO SCH (08:25)
[2016-12-23] MEDS: predniSONE 10 MG TAB PO SCH (08:25)
[2016-12-23] MEDS: CHOLECALCIFEROL (VIT D3) 1000 UNIT TAB PO SCH (08:25)
[2016-12-23] MEDS: guaiFENesin E.R. 600 MG TAB PO SCH (08:25)
[2016-12-23] MEDS: SODIUM CHLORIDE 0.9% FLUSH 10 ML FLUSH IV FLUSH SCH (08:26)
[2016-12-23] MEDS: ENOXAPARIN SODIUM 40 MG/0.4 ML SYRINGE SQ SCH (08:26)
[2016-12-23] MEDS: RESP: LEVALBUTEROL HYDROCHLORIDE 1.25 MG/3 ML NEB (SCH) NEB ×2 (08:49→11:55)
[2016-12-23 08:50] VITALS: O2SAT 96
--- NOTE | 2016-12-23 11:17 | HHI.PR ---
Subjective Remarks Follow-up COPD exacerbation/community acquired bacterial pneumonia 12/17/16-patient seen and examined, currently afebrile ad continue to have wheezing. States, she is weak with ambulation. Complains of nonproductive cough 12/18/16-patient seen and examined complains of generalized weakness this morning. Positive for cough production and currently afebrile. Daughter by the bedside 12/19/16-patient seen and examined, diagnosis with non-ST elevation [place] for which cardiology has been consulted. Patient states she is feeling very weak today however denies any chest pain. 12/20/16-patient seen and examined, states she still feels weak ,complains now of cough production however currently afebrile 12/21/16-patient seen and examined, afebrile, improved cough production, she was up and walking with Even Though She States She Said she still feels weak 12/22/16-patient seen and examined, some expiratory wheezing otherwise stable. However she complains of the fact that she can bring her cough today 12/23/16-patient seen and examined, currently afebrile with improving respiratory symptoms of wheezing and cough. Patient able to ambulate. States she is ready for discharge home. Son by the bedside Objective Vitals Vital Signs Date Time Temp Pulse Resp B/P Pulse Ox O2 Delivery O2 Flow Rate FiO2 12/23/16 08:50 96 21 12/23/16 08:04 96.4 58 17 116/56 96 12/23/16 05:20 97.8 60 16 120/57 94 12/22/16 23:03 96.0 77 20 143/67 97 12/22/16 23:02 20 12/22/16 21:00 67 12/22/16 20:24 94 21 12/22/16 20:00 96.5 73 21 126/70 95 12/22/16 16:00 97.7 70 22 130/62 96 12/22/16 15:55 95 21 12/22/16 12:00 97.4 72 22 120/58 95 I/O 12/22/16 12/22/16 12/22/16 12/23/16 12/23/16 12/23/16 07:00 15:00 23:00 07:00 15:00 23:00 Intake Total 750 ml 240 ml Balance 750 ml 240 ml Intake Oral 750 ml 240 ml # Voids 3 3 1 2 # Bowel Movements 0 Result Diagram: 12/22/16 0602 12/22/16 0602 Imaging Last Impressions Chest X-Ray 12/20/16 0000 Signed Impressions: Service Date/Time: Tuesday, December 20, 2016 17:19 - CONCLUSION: 1. Minimal basilar atelectasis or scarring. Mild cardiomegaly. No acute findings compared with December 15. Kevyn Diane MD CT Angiography 12/15/16 1628 Signed Impressions: Service Date/Time: Thursday, December 15, 2016 17:18 - CONCLUSION: 1. No PE is identified. 2. Ovoid areas of groundglass attenuation in the right lower lobe and left upper lobe may represent an inflammatory process. Suggest a three- month followup chest CT to confirm resolution. 3. Severe coronary artery calcification and atherosclerotic disease of the aorta. eLonardo Watters MD Objective Remarks GENERAL: NAD SKIN: Warm and dry. HEAD: Normocephalic. EYES: No scleral icterus. No injection or drainage. NECK: Supple, trachea midline. No JVD or lymphadenopathy. CARDIOVASCULAR: Regular rate and rhythm without murmurs, gallops, or rubs. RESPIRATORY: Breath sounds equal bilaterally. No accessory muscle use. GASTROINTESTINAL: Abdomen soft, non-tender, nondistended. MUSCULOSKELETAL: No cyanosis, or edema. BACK: Nontender without obvious deformity. No CVA tenderness. Procedures None A/P Problem List: (1) COPD with acute exacerbation ICD Code: J44.1 Status: Resolved (2) Community acquired bacterial pneumonia ICD Code: J15.9 Status: Acute (3) Dysphagia ICD Code: R13.10 Status: Resolved (4) RIOS (acute kidney injury) ICD Code: N17.9 Status: Resolved (5) Non-ST elevation [place] (NSTEMI) ICD Code: I21.4 Status: Resolved Assessment and Plan 86-year-old female with 1. Non-ST elevation [place] Resolved Currently denies any chest pain Continue with Lovenox, beta tennille, statin, aspirin, Nitropaste Patient along with daughter have decided to go with medical management, therefore plan for Lexiscan stress test outpatient if needed Appreciate input from cardiology 2. COPD exacerbation, pneumonia: CT shows no PE. s/p Solu-Medrol 20 mg every 12 hours, continue Levaquin 250mg IV Q48H and prednisone 10 mg daily, bronchodilator, maintain oxygen saturation above 92%. Continue Mucinex. Chest x-ray noted and review 3. Community-acquired bacterial pneumonia: Improving and Currently on Levaquin 250 mg Q48H 4. Dysphagia: Resolved 5. Acute kidney injury: Improving. Avoid all nephrotoxic, monitor BUN and creatinine 6. Diabetes mellitus: Metformin on hold. Monitor Accu-Cheks and continue with scale insulin. 7. GI prophylaxis: Pepcid. 8. DVT prophylaxis: Subcutaneous heparin. 9. Leukocytosis: Secondary to steroid Shahzad Pedro MD Dec 23, 2016 11:17
[2016-12-23] MEDS ORDERED: DEXT10SY2 PO (11:22)
[2016-12-23] MEDS ORDERED: XOPEAER4 INH (11:22)
[2016-12-23] MEDS ORDERED: PRED10 PO (11:22)
[2016-12-23] MEDS ORDERED: LEVA250T14 PO (11:22)
--- NOTE | 2016-12-23 11:28 | HHI.DS ---
Discharge Summary Admission Date Dec 15, 2016 at 18:07 Discharge Date: Dec 23, 2016 Admitting Diagnosis acute exacerbation of COPD. Pneumonia. (1) COPD with acute exacerbation ICD Code: J44.1 (2) Community acquired bacterial pneumonia ICD Code: J15.9 (3) Dysphagia ICD Code: R13.10 (4) RIOS (acute kidney injury) ICD Code: N17.9 (5) Non-ST elevation [place] (NSTEMI) ICD Code: I21.4 Procedures None Brief History - From Admission Written by Harriett Santiago PA-C acting as scribe for Dr. Marsh on 12/15/16 at ~0625. 86-year-old female with history of COPD, coronary artery disease, hyperlipidemia, hypertension, GERD, diabetes, thyroid disease, and anxiety presents with complaint of trouble breathing and cough. She states she started not feeling well on Friday and then coughed all night on . States cough is nonproductive. She states she went to a clinic but was sent to the emergency department. Admits to shortness of breath. She denies any chest pain currently aside from when she eats. When we walked into the room the patient had just eaten something and it felt like it was stuck. Patient states she chokes on her food every time she eats. She does admit to a history of chest pain for which she takes nitroglycerin. She states last she had chest pain; she states that it is one pain that she gets substernally. She denies having this type of pain today. She denies any fevers, chills, night sweats. Denies nausea or vomiting. Denies any dysuria. She does admit to an ache behind her eyes. She has never had a GI workup. CBC/BMP: 12/22/16 0602 12/22/16 0602 Significant Findings Laboratory Tests Test 12/22/16 06:02 White Blood Count 16.6 TH/MM3 (4.0-11.0) Neutrophils (%) (Auto) 87.1 % (16.0-70.0) Lymphocytes (%) (Auto) 7.2 % (9.0-44.0) Neutrophils # (Auto) 14.5 TH/MM3 (1.8-7.7) Blood Urea Nitrogen 35 MG/DL (7-18) Estimat Glomerular Filtration 52 ML/MIN (>89) Rate Random Glucose 202 MG/DL (74-106) Imaging Last Impressions Chest X-Ray 12/20/16 0000 Signed Impressions: Service Date/Time: Tuesday, December 20, 2016 17:19 - CONCLUSION: 1. Minimal basilar atelectasis or scarring. Mild cardiomegaly. No acute findings compared with December 15. Kevyn Diane MD CT Angiography 12/15/16 1628 Signed Impressions: Service Date/Time: Thursday, December 15, 2016 17:18 - CONCLUSION: 1. No PE is identified. 2. Ovoid areas of groundglass attenuation in the right lower lobe and left upper lobe may represent an inflammatory process. Suggest a three- month followup chest CT to confirm resolution. 3. Severe coronary artery calcification and atherosclerotic disease of the aorta. Leonardo Watters MD PE at Discharge GENERAL: NAD SKIN: Warm and dry. HEAD: Normocephalic. EYES: No scleral icterus. No injection or drainage. NECK: Supple, trachea midline. No JVD or lymphadenopathy. CARDIOVASCULAR: Regular rate and rhythm without murmurs, gallops, or rubs. RESPIRATORY: Breath sounds equal bilaterally. No accessory muscle use. GASTROINTESTINAL: Abdomen soft, non-tender, nondistended. MUSCULOSKELETAL: No cyanosis, or edema. BACK: Nontender without obvious deformity. No CVA tenderness. Hospital Course Patient was admitted secondary to COPD exacerbations as well as community- acquired bacterial pneumonia for which she was treated with IV antibiotic, Long and short term acting bronchodilator as well as steroids. Secondary to worsening renal function IV Levaquin will switch to every 48 hours. Hospitalization was complicated by atypical chest pain for which cardiology was consulted, however patient family elected on medical management. All electrolyte abnormalities were corrected accordingly. She was placed on a sliding scale insulin will monitoring of blood glucose. She was continued on a treatment for other chronic medical conditions. Physical therapy was consulted. DVT and GI prophylaxis were provided. Patient's condition improved prior to discharge. Pt Condition on Discharge: Stable Discharge Disposition: Discharge Home Discharge Time: > 30 minutes Discharge Instructions DIET: Follow Instructions for: Diabetic Diet Speech Therapy-Diet Recommends: Regular Activities you can perform: Regular-No Restrictions Follow up Referrals: Cardiology PCP Follow-up - 1 Week New Medications: Levalbuterol 15 GM Inh (Xopenex Hfa 15 GM Inh) 45 Mcg/Act Aer 90 MCG INH Q4HR Shake well before using. (1 puff = 45 mcg) Breathing Treatment # 2 Ref 3 INHALER Levofloxacin (Levaquin) 250 Mg Tablet 250 MG PO DAILY Infection #3 MG Dextromethorphan-Guaifenesin (Dextromethorphan/Guaifene 10-100 mg/5Ml) 1 Syp Syp 10 ML PO Q4H PRN COUGH #250 ML Prednisone (Prednisone) 10 Mg Tab 10 MG PO DAILY Infection #2 TAB Continued Medications: Alprazolam (Alprazolam) 0.25 Mg Tab 0.25 MG PO Q4H PRN ANXIETY Ref 0 TAB Aspirin (Aspirin) 81 Mg Chew 81 MG CHEW DAILY Ref 0 TAB Atenolol (Atenolol) 25 Mg Tab 25 MG PO DAILY Blood Pressure Management #30 TAB Atorvastatin (Atorvastatin) 10 Mg Tab 10 MG PO HS Cholesterol Management #30 Ref 0 TAB Calcium Carbonate (Calcium) 600 Mg Tab 1 TAB PO DAILY Cholecalciferol (Vitamin D-3) 1,000 Unit Cap 1 TAB PO DAILY Cyanocobalamin (Vitamin B12) 500 Mcg Tab 1000 MCG PO DAILY #1 BOTTLE Fluticasone-Salmeterol 12 GM Inh (Advair Hfa 12 GM Inh) 115-21 Mcg/Act Aer 2 PUFF INH BID #1 Ref 0 INHALER Metformin ER (Metformin ER) 500 Mg Terrance 500 MG PO DAILY With evening meal Blood Sugar Management Ref 0 TAB Multiple Vitamin (Multi Vitamin Daily) 1 Tab Tab 1 TAB PO DAILY Nitroglycerin SL (Nitroglycerin SL) 0.4 Mg Subl 0.4 MG SL DIRECTED ONE TABLET UNDER THE TONGUE NEEDED FOR CHEST PAIN, MAY REPEAT EVERY FIVE MINUTES FOR A TOTAL OF 3 DOSES OR CALL 911 IF NO RELIEF PRN CHEST PAIN #100 Ref 0 TAB.SL [place]-3 Fatty Acids (Fish Oil 1200 mg) 1 Cap Cap 1 TAB PO DAILY Pregabalin (Lyrica) 50 Mg Cap 50 MG PO TID #90 Ref 0 CAP Shahzad Pedro MD Dec 23, 2016 11:28
[2016-12-23] MEDS ORDERED: INSPIREASE DRUG1 EA (12:07)
[2016-12-23 12:15] VITALS: BP 128/56; PULSE 63; RESP 18; TEMP 96.2; O2SAT 94
--- NOTE | 2016-12-23 13:48 | HHI.FF ---
Face to Face Verification Diagnosis: (1) COPD with acute exacerbation (2) Community acquired bacterial pneumonia Physical Therapy Order: Evaluate and Treat I have seen patient Valarie Quintana on 12/23/16. My clinical findings support the need for the requested home health care services because: Deconditioned w/ increased weakness I certify that my clinical findings support that this patient is homebound because: Hx COPD- exertion dyspnea/weakness Shahzad Pedro MD Dec 23, 2016 13:48
[2016-12-24] MEDS ORDERED: ADVA250A INH (12:44)
[2016-12-24] MEDS ORDERED: SYMB160A INH (12:44)
== END 2016-12-23 14:38 | disposition home health service (06) | DRG 190 ==
LOC: PHED 14:51 → PHEDA 18:07 → PH3A 20:22
PROVIDERS: ADMIT Hospitalist; ATTEND Hospitalist
DX: J44.0 Chronic obstructive pulmonary disease with (acute) lower respiratory infection (principal); J18.9 Pneumonia, unspecified organism; I21.4 Non-ST elevation (NSTEMI) myocardial infarction; N17.9 Acute kidney failure, unspecified; I25.10 Atherosclerotic heart disease of native coronary artery without angina pectoris; E11.9 Type 2 diabetes mellitus without complications; J44.1 Chronic obstructive pulmonary disease with (acute) exacerbation; K21.9 Gastro-esophageal reflux disease without esophagitis; I10 Essential (primary) hypertension; E78.5 Hyperlipidemia, unspecified; F41.9 Anxiety disorder, unspecified; E03.9 Hypothyroidism, unspecified; R07.89 Other chest pain; Z77.22 Contact with and (suspected) exposure to environmental tobacco smoke (acute) (chronic); R13.10 Dysphagia, unspecified; Z79.82 Long term (current) use of aspirin; Z79.84 Long term (current) use of oral hypoglycemic drugs
CPT/HCPCS: 71010; 71275; 76937; 80048; 80053; 82550; 82552; 82948; 83735; 83880; 84443; 84484; 85025; 85379; 85610; 85730; 93005; 94640; 94664; 94667; 94668; 96374; 96375; J1644; J1650; J1815; J1940; J1956; J2060; J2270; J2920; J2930; J3480; J7030; J7512; J7614; Q9967

== ENCOUNTER 2017-09-16 12:57 | Observation (INO) | payer MEDICARE, OTHER ==
[~2017-09-16] VITALS: Ht 167.6 cm; Wt 80.0 kg
[~2017-09-16 12:57] MED LIST changes: -ADVA100A INH; +ADVA115A INH; +ADVA250A INH; -AMBI10TA PO; +ASPI-516 CHEW; -ASPI81TA82 PO; -ATEN-100 PO; +ATEN25TA PO; +ATOR10TA15 PO; -ATOR20TA42 PO; +CALC600T5 PO; -CALCTAB32 PO; -COQ-100C5 PO; -COZA25TA PO; +D31000CA3 PO; +DEXT10SY2 PO; -FISH1000 PO; +FISH1200 PO; -GLUCTAB PO; +INSPIREASE DRUG1 EA; +LEVA250T14 PO; -LEVO100T4 PO; +LYRI50CA PO; +METF500T4 PO; +MULT1TAB46 PO; -NITR.4 SL; +NITR1SUB3 SL; +PRED10 PO; -PREG100 PO; -RANI150T PO; +SYMB160A INH; -TIOT18I INH; +VITA500T35 PO; +XOPEAER4 INH
[2017-09-16] MEDS ORDERED: LORazepam 2 MG/ML VIAL ONE (13:23)
[2017-09-16 13:45] VITALS: BP 129/60; PULSE 92; RESP 14; TEMP 97.6; O2SAT 96
[2017-09-16] MEDS ORDERED: SODIUM CHLORIDE 0.9% FLUSH 10 ML FLUSH IVF PRN (13:45)
--- NOTE | 2017-09-16 14:06 | RADRPT ---
EXAM DATE/TIME: 09/16/2017 13:50 [facility] COMPARISON: No previous studies available for comparison. INDICATIONS : Possible seizure, altered mental status RADIATION DOSE: 56.35 CTDIvol (mGy) MEDICAL HISTORY : Chronic obstructive pulmonary disease. Cardiovascular disease Hypertension.Diabetes SURGICAL HISTORY : Cholecystectomy. ENCOUNTER: Initial ACUITY: 1 day PAIN SCALE: 0/10 LOCATION: cranial TECHNIQUE: Multiple contiguous axial images were obtained of the head. Using automated exposure control and adj ustment of the mA and/or kV according to patient size, radiation dose was kept as low as reasonably a chievable to obtain optimal diagnostic quality images. DICOM format image data is available electro nically for review and comparison. FINDINGS: CEREBRUM: The ventricles are normal for age. Bilateral cortical activity. There is moderate chronic white matte r changes bilaterally. No evidence of midline shift, mass lesion, hemorrhage or acute infarction. No extra-axial fluid collections are seen. POSTERIOR FOSSA: The cerebellum and brainstem are intact. The 4th ventricle is midline. The cerebellopontine angle i s unremarkable. EXTRACRANIAL: The visualized portion of the orbits is intact. SKULL: The calvaria is intact. No evidence of skull fracture. CONCLUSION: 1. No acute intracranial hemorrhage. 2. Bilateral cortical atrophy and chronic white matter changes. Andrew Dominguez MD on September 16, 2017 at 14:00 Board Certified Radiologist. This report was verified electronically.
[2017-09-16 14:31] LABS: AUTOMATED NEUTROPHIL # 5.4 TH/MM3 (1.8-7.7); BASOPHIL % 0.5 % (0.0-2.0); EOSINOPHIL # 0.3 TH/MM3 (0-0.4); EOSINOPHIL % 3.3 % (0.0-4.0); HEMATOCRIT 44.7 % (35.0-46.0); HEMOGLOBIN 15.1 GM/DL (11.6-15.3); LYMPH % 18.6 % (9.0-44.0); LYMPHOCYTE # 1.4 TH/MM3 (1.0-4.8); MEAN CORPUSCULAR HEMOGLOBIN 31.4 PG (27.0-34.0); MEAN CORPUSCULAR HGB CONC 33.7 % (32.0-36.0); MEAN PLATELET VOLUME 8.6 FL (7.0-11.0); MONOCYTE # 0.6 TH/MM3 (0-0.9); NEUT % 69.6 % (16.0-70.0); PLATELET COUNT 178 TH/MM3 (150-450); RED BLOOD COUNT 4.81 MIL/MM3 (4.00-5.30); RED CELL DISTRIBUTION WIDTH 14.5 % (11.6-17.2); WHITE BLOOD COUNT 7.7 TH/MM3 (4.0-11.0)
[2017-09-16 14:48] LABS: ALBUMIN 3.5 GM/DL (3.4-5.0); AST (GOT) 31 U/L (15-37); BLOOD UREA NITROGEN 16 MG/DL (7-18); CALCIUM 9.4 MG/DL (8.5-10.1); CHLORIDE 108 MEQ/L (98-107); CREATININE 1.06 MG/DL (0.50-1.00); GLOMERULAR FILTRATION RATE 49 ML/MIN (>89); GLUCOSE,RANDOM 98 MG/DL (74-106); SODIUM (NA) 142 MEQ/L (136-145)
[2017-09-16 14:51] LABS: ALKALINE PHOSPHATASE 67 U/L (45-117); ALT (GPT) 29 U/L (10-53); TOTAL BILIRUBIN ADULT 0.7 MG/DL (0.2-1.0)
--- NOTE | 2017-09-16 15:19 | PD ---
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 I was called into the ambulance hallway because patient was having a shaking episode again. Patient cannot give me any history and history is limited on initial examination. PFSH Past Medical History Narrative Medical By records Arthritis: No Asthma: No Autoimmune Disease: No Cancer: No Cardiovascular Problems: Yes High Cholesterol: Yes Chest Pain: Yes COPD: Yes Cerebrovascular Accident: No Coronary Artery Disease: Yes Diabetes: Yes Diminished Hearing: No Endocrine: Yes GERD: Yes Genitourinary: No Hiatal Hernia: Yes (past) Hypertension: Yes Immune Disorder: No Musculoskeletal: No Neurologic: No Psychiatric: No Reproductive: No Respiratory: Yes (COPD) Immunizations Current: No Migraines: No Seizures: No Sleep Apnea: No Thyroid Disease: Yes Ulcer: No Past Surgical History Narrative Surgical By records Abdominal Surgery: Yes (hiatal hernia repair, gall bladder) AICD: No Arteriovenous Shunt: No Cardiac Surgery: No Section: Yes (1958,1963) Cholecystectomy: Yes (1964) Ear Surgery: No Endocrine Surgery: No Eye Surgery: No Genitourinary Surgery: No Gynecologic Surgery: Yes (2 cecarian sections, hysterectomy) Hysterectomy: Yes (1964) Insulin Pump: No Joint Replacement: No Oral Surgery: No Pacemaker: No Thoracic Surgery: No Other Surgery: Yes (partial thyroidectomy) Social History Narrative Social History By records Alcohol Use: No Tobacco Use: No Substance Use: No Allergies-Medications (Allergen,Severity, Reaction): Coded Allergies: penicillin G (Unverified Allergy, Severe, RASH, 02/11/17) Reported Meds & Prescriptions Reported Meds & Active Scripts Active Symbicort Inh (Budesonide/Formoterol Fumarate) 160-4.5 Mcg/Act Aero 2 Puff INH Q12HR Advair Diskus Inh (Fluticasone-Salmeterol Inh) 250-50 Mcg/Blist Aer 1 Puff INH BID Rinse mouth after use. Inspirease Drug Delivery (Spacer/Device For Mdi) 1 Ea Mis 1 Ea .ROUTE DIRECTED Levaquin (Levofloxacin) 250 Mg Tablet 250 Mg PO DAILY Xopenex Hfa 15 GM Inh (Levalbuterol 15 GM Inh) 45 Mcg/Act Aer 90 Mcg INH Q4HR Shake well before using. (1 puff = 45 mcg) Prednisone 10 Mg Tab 10 Mg PO DAILY Dextromethorphan/Guaifene 10-100 mg/5Ml (Dextromethorphan-Guaifenesin) 1 Syp Syp 10 Ml PO Q4H PRN Reported Atorvastatin (Atorvastatin Calcium) 10 Mg Tab 10 Mg PO HS Vitamin D-3 (Cholecalciferol) 1,000 Unit Cap 1 Tab PO DAILY Vitamin B12 (Cyanocobalamin) 500 Mcg Tab 1,000 Mcg PO DAILY Fish Oil 1200 mg ([place]-3 Fatty Acids) 1 Cap Cap 1 Tab PO DAILY Multi Vitamin Daily (Multiple Vitamin) 1 Tab Tab 1 Tab PO DAILY Calcium (Calcium Carbonate) 600 Mg Tab 1 Tab PO DAILY Advair Hfa 12 GM Inh (Fluticasone-Salmeterol 12 GM Inh) 115-21 Mcg/Act Aer 2 Puff INH BID Nitroglycerin SL (Nitroglycerin) 0.4 Mg Subl 0.4 Mg SL DIRECTED PRN ONE TABLET UNDER THE TONGUE NEEDED FOR CHEST PAIN, MAY REPEAT EVERY FIVE MINUTES FOR A TOTAL OF 3 DOSES OR CALL 911 IF NO RELIEF Alprazolam 0.25 Mg Tab 0.25 Mg PO Q4H PRN Atenolol 25 Mg Tab 25 Mg PO DAILY Lyrica (Pregabalin) 50 Mg Cap 50 Mg PO TID Aspirin 81 Mg Chew 81 Mg CHEW DAILY Metformin ER (Metformin HCl) 500 Mg Terrance 500 Mg PO DAILY With evening meal Review of Systems ROS Limitations: Other: (shaking episode) Physical Exam Exam Limitations: Other: (shaking episode) Narrative GENERAL: 87-year-old female who is having shaking-like tremor to bilateral hands SKIN: Focused skin assessment warm/dry. HEAD: Atraumatic. Normocephalic. EYES: Pupils equal and round. No scleral icterus. No injection or drainage. ENT: No nasal bleeding or discharge. Mucous membranes pink and moist. NECK: Trachea midline. No JVD. CARDIOVASCULAR: Regular rate and rhythm. RESPIRATORY:Clear to auscultation. Breath sounds equal bilaterally. NEUROLOGICAL: During episode patient is able to follow commands by squeezing hand, lifting appropriate extremity, open and closing eyes Data Data Last Documented VS Vital Signs Date Time Temp Pulse Resp B/P (MAP) Pulse Ox O2 Delivery O2 Flow Rate FiO2 09/16/17 13:45 97.6 92 14 129/60 (83) 96 Orders Orders Lorazepam Inj (Ativan Inj) (09/16/17 13:23) Complete Blood Count With Diff (09/16/17 13:41) Electrocardiogram (09/16/17 ) Ct Brain W/O Iv Contrast(Rout) (09/16/17 ) Blood Glucose (09/16/17 13:41) Ecg Monitoring (09/16/17 13:41) Iv Access Insert/Monitor (09/16/17 13:41) Oximetry (09/16/17 13:41) Comprehensive Metabolic Panel (09/16/17 13:41) Sodium Chloride 0.9% Flush (Ns Flush) (09/16/17 13:45) Urinalysis - C+S If Indicated (09/16/17 13:41) Admit Order (Ed Use Only) (09/16/17 15:28) Labs Laboratory Tests Test 09/16/17 14:06 White Blood Count 7.7 TH/MM3 Red Blood Count 4.81 MIL/MM3 Hemoglobin 15.1 GM/DL Hematocrit 44.7 % Mean Corpuscular Volume 93.0 FL Mean Corpuscular Hemoglobin 31.4 PG Mean Corpuscular Hemoglobin Concent 33.7 % Red Cell Distribution Width 14.5 % Platelet Count 178 TH/MM3 Mean Platelet Volume 8.6 FL Neutrophils (%) (Auto) 69.6 % Lymphocytes (%) (Auto) 18.6 % Monocytes (%) (Auto) 8.0 % Eosinophils (%) (Auto) 3.3 % Basophils (%) (Auto) 0.5 % Neutrophils # (Auto) 5.4 TH/MM3 Lymphocytes # (Auto) 1.4 TH/MM3 Monocytes # (Auto) 0.6 TH/MM3 Eosinophils # (Auto) 0.3 TH/MM3 Basophils # (Auto) 0.0 TH/MM3 CBC Comment DIFF FINAL Differential Comment Blood Urea Nitrogen 16 MG/DL Creatinine 1.06 MG/DL Random Glucose 98 MG/DL Total Protein 7.0 GM/DL Albumin 3.5 GM/DL Calcium Level 9.4 MG/DL Alkaline Phosphatase 67 U/L Aspartate Amino Transf (AST/SGOT) 31 U/L Alanine Aminotransferase (ALT/SGPT) 29 U/L Total Bilirubin 0.7 MG/DL Sodium Level 142 MEQ/L Potassium Level 3.9 MEQ/L Chloride Level 108 MEQ/L Carbon Dioxide Level 25.0 MEQ/L Anion Gap 9 MEQ/L Estimat Glomerular Filtration Rate 49 ML/MIN MDM Medical Decision Making Medical Screen Exam Complete: Yes Emergency Medical Condition: Yes Medical Record Reviewed: Yes (pmh confirmed) Interpretation(s) CBC & BMP Diagram 09/16/17 14:06 Total Protein 7.0, Albumin 3.5, Calcium Level 9.4, Alkaline Phosphatase 67, Aspartate Amino Transf (AST/SGOT) 31, Alanine Aminotransferase (ALT/SGPT) 29, Total Bilirubin 0.7 Last [address] 09/16/17 0000 Signed Impressions: Service Date/Time: Saturday, September 16, 2017 13:50 - CONCLUSION: 1. No acute intracranial hemorrhage. 2. Bilateral cortical atrophy and chronic white matter changes. Andrew Dominguez MD Differential Diagnosis Tremor episode, seizure, electrolyte abnormality, intracranial, UTI Narrative Course Will check blood work, CT brain, urinalysis and discuss with neurology Will place patient in observation for further care. Physician Communication Physician Communication dr macario states patient was in his office for follow-up and follows with Dr. Diane, patient was having shaking episode but was able to talk to him through episode. dr carcamo states to admit for further care including eeg, no seizure medication at this time dr busby agrees to admit Diagnosis Primary Impression: Episode of shaking Admitting Information Admitting Physician Requests: Observation Jie Valentino MD Sep 16, 2017 15:19
[2017-09-16] MEDS ORDERED: SODIUM CHLORIDE 0.9% FLUSH 10 ML FLUSH IV FLUSH PRN (15:45)
[2017-09-16 16:37] LABS: BILIRUBIN, URINE NEG (NEG); BLOOD, URINE NEG (NEG); GLUCOSE,URINE NEG (NEG); KETONE, URINE NEG (NEG); NITRITE,URINE NEG (NEG); SQUAMOUS EPITHELIAL CELL URINE 1 /hpf (0-5); URINE COLOR LIGHT-YELLOW (YELLW/STRAW); URINE LEUKOCYTE ESTERASE NEG (NEG)
[2017-09-16 17:00] VITALS: BP 149/67; PULSE 81; RESP 18; O2SAT 98
[2017-09-16 17:28] VITALS: BP 147/67; PULSE 83; RESP 14; TEMP 98; O2SAT 98
--- NOTE | 2017-09-16 18:17 | MB ---
cc: Dali Arita MD DATE OF CONSULT: REASON FOR CONSULTATION: Tremor, possible seizure. 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 Childs, when she had an episode where she shook all over, but still able to talk. Ambulance was called because she was having shaking episodes, but she does not know how she got there and why. She states she had a similar episode once from possibly a medication, but she did not receive any medications in his office. PAST MEDICAL HISTORY: She has a history of hyperlipidemia, cardiac disease, COPD, diabetes, reflux, cholecystectomy, hysterectomy history, partial thyroidectomy. ALLERGIES: PENICILLIN. HOME MEDICINES: Symbicort, Advair Diskus, Inspirease, Levaquin, Xopenex, prednisone, dextromethorphan, guaifenesin. Also reported to be on atorvastatin, vitamin D3, B12, fish oil, multivitamins, calcium, nitroglycerin, alprazolam p.r.n., atenolol, Lyrica, aspirin, metformin. PHYSICAL EXAMINATION: VITAL SIGNS: Temperature is 97.6, pulse 81, blood pressure 149/67, sating at 98%. NECK: Supple. HEART: Regular. NEUROLOGIC: She is awake, alert and fluent. Pupils reactive. Face symmetrical. Tongue midline. Motor lucero, she seems to move everything equally. No drift or leg lag. Cerebellar is normal. DTRs are 1+. Gait is withheld. LABORATORY AND DIAGNOSTIC DATA: CT did not show any acute findings in the brain, just atrophy. CBC is normal. Chemistries, creatinine 1.06, GFR 49. Urine unremarkable. IMPRESSION: Shaking episode. Certainly may be seizure, but could have been just a motor seizure. I would recommend getting an electroencephalogram, observe her. If EEG is unremarkable, likely can be discharged. Put her on telemetry. She may need to rule out an arrhythmia as well. At this point in time, she seems back to baseline. I do not see any evidence of a stroke. Continue current care. Continue her home medications, at least an aspirin and her chronic obstructive pulmonary disease medications. Dali Arita MD DF/KATHERINE , 05:31 PM , 06:15 PM
[2017-09-16] MEDS ORDERED: LEVO88TA2 PO (18:58)
[2017-09-16] MEDS ORDERED: METO25TA3 PO (18:58)
[2017-09-16] MEDS ORDERED: GABA300C5 PO (21:48)
[2017-09-16] MEDS: SODIUM CHLORIDE 0.9% FLUSH 10 ML FLUSH IV FLUSH SCH (21:56)
[2017-09-16] MEDS ORDERED: ATORVASTATIN 10 MG TAB PO SCH (22:00)
[2017-09-16] MEDS ORDERED: ALPRAZolam 0.25 MG TAB PO PRN (22:00)
[2017-09-16] MEDS ORDERED: DEXTROSE 50% IN WATER 50 ML VIAL(D50) IV PUSH PRN (22:15)
[2017-09-16] MEDS ORDERED: RESP: ALBUTEROL 2.5 MG/IPRATROPIUM 0.5 MG NEB (PRN) NEB (22:15)
[2017-09-16] MEDS ORDERED: GLUCAGON 1 MG/ML VIAL OTHER PRN (22:15)
[2017-09-16] MEDS: GABAPENTIN 300 MG CAP PO SCH (22:41)
[2017-09-16] MEDS: METOPROLOL TARTRATE 25 MG TAB PO SCH (22:42)
--- NOTE | 2017-09-16 23:53 | HHI.HP ---
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 Patient remembers nothing of this, remembers waking up in the ER. She reports feeling all right. Denies any chest pain, shortness of breath, nausea, vomiting. Review of Systems Except as stated in HPI: all other systems reviewed are Neg Past Family Social History Past Medical History COPD Coronary artery disease Hyperlipidemia Hypertension Diabetes GERD Thyroid disease Past Surgical History Hernia repair and 59 Cholecystectomy Hysterectomy Partial thyroidectomy Reported Medications Atorvastatin 10 mg daily Fish oil 1200 mg daily Nitroglycerin as needed for chest pain Metoprolol 12.5 mg by mouth twice a day Aspirin 81 mg daily Gabapentin 300 mg by mouth twice a day Alprazolam 0.25 mg by mouth daily as needed Gabapentin 3 mg by mouth twice a day Symbicort Allergies: Coded Allergies: penicillin G (Unverified Allergy, Severe, RASH, 02/11/17) Family History Mother from pancreatic cancer. Father from stomach cancer. Brother with pancreatic cancer. Social History Nonsmoker. Nondrinker. Denies illicit drugs. Physical Exam Vital Signs Vital Signs Date Time Temp Pulse Resp B/P (MAP) Pulse Ox O2 Delivery O2 Flow Rate FiO2 09/16/17 17:28 98.0 83 14 147/67 (93) 98 09/16/17 17:00 81 18 149/67 (94) 98 09/16/17 13:45 97.6 92 14 129/60 (83) 96 Physical Exam GENERAL: This is a well-nourished, well-developed patient, in no apparent distress. disoriented. SKIN: No rashes, ecchymoses or lesions. Cool and dry. HEAD: Atraumatic. Normocephalic. No temporal or scalp tenderness. EYES: Pupils equal round and reactive. Extraocular motions intact. No scleral icterus. No injection or drainage. ENT: Nose without bleeding, purulent drainage or septal hematoma. Throat without erythema, tonsillar hypertrophy or exudate. Uvula midline. Airway patent. NECK: Trachea midline. No JVD or lymphadenopathy. Supple, nontender, no meningeal signs. CARDIOVASCULAR: Regular rate and rhythm without murmurs, gallops, or rubs. RESPIRATORY: Clear to auscultation. Breath sounds equal bilaterally. No wheezes , rales, or rhonchi. GASTROINTESTINAL: Abdomen soft, non-tender, nondistended. No hepato-splenomegaly , or palpable masses. No guarding. MUSCULOSKELETAL: Extremities without clubbing, cyanosis, or edema. No joint tenderness, effusion, or edema noted. No calf tenderness. Negative Homans sign bilaterally. NEUROLOGICAL: Awake and alert. Cranial nerves II through XII intact. Motor and sensory grossly within normal limits. Five out of 5 muscle strength in all muscle groups. Normal speech. Laboratory Laboratory Tests Test 09/16/17 14:06 09/16/17 15:33 White Blood Count 7.7 Red Blood Count 4.81 Hemoglobin 15.1 Hematocrit 44.7 Mean Corpuscular Volume 93.0 Mean Corpuscular Hemoglobin 31.4 Mean Corpuscular Hemoglobin Concent 33.7 Red Cell Distribution Width 14.5 Platelet Count 178 Mean Platelet Volume 8.6 Neutrophils (%) (Auto) 69.6 Lymphocytes (%) (Auto) 18.6 Monocytes (%) (Auto) 8.0 Eosinophils (%) (Auto) 3.3 Basophils (%) (Auto) 0.5 Neutrophils # (Auto) 5.4 Lymphocytes # (Auto) 1.4 Monocytes # (Auto) 0.6 Eosinophils # (Auto) 0.3 Basophils # (Auto) 0.0 CBC Comment DIFF FINAL Differential Comment Blood Urea Nitrogen 16 Creatinine 1.06 Random Glucose 98 Total Protein 7.0 Albumin 3.5 Calcium Level 9.4 Alkaline Phosphatase 67 Aspartate Amino Transf (AST/SGOT) 31 Alanine Aminotransferase (ALT/SGPT) 29 Total Bilirubin 0.7 Sodium Level 142 Potassium Level 3.9 Chloride Level 108 Carbon Dioxide Level 25.0 Anion Gap 9 Estimat Glomerular Filtration Rate 49 Urine Color LIGHT-YELLOW Urine Turbidity CLEAR Urine pH 6.0 Urine Specific [place] 1.006 Urine Protein NEG Urine Glucose (UA) NEG Urine Ketones NEG Urine Occult Blood NEG Urine Nitrite NEG Urine Bilirubin NEG Urine Urobilinogen LESS THAN 2.0 Urine Leukocyte Esterase NEG Urine WBC 1 Urine Squamous Epithelial Cells 1 Microscopic Urinalysis Comment CULT NOT INDICATED Result Diagram: 09/16/17 1406 09/16/17 1406 Imaging Last Impressions Head CT 09/16/17 0000 Signed Impressions: Service Date/Time: Saturday, September 16, 2017 13:50 - CONCLUSION: 1. No acute intracranial hemorrhage. 2. Bilateral cortical atrophy and chronic white matter changes. MD Amrit Mcdowell VTE Risk Assessment Caprini VTE Risk Assessment: Mod/High Risk (score >= 2) Caprini Risk Assessment Model Point Value = 1 Point Value = 2 Point Value = 3 Point Value = 5 Age 41-60 Minor surgery BMI > 25 kg/m2 Swollen legs Varicose veins or History of unexplained or recurrent spontaneous Oral contraceptives or hormone replacement Sepsis (< 1 month) Serious lung disease, including pneumonia (< 1 month) Abnormal pulmonary function Acute myocardial infarction Congestive heart failure (< 1 month) History of inflammatory bowel disease Medical patient at bed rest Age 61-74 Arthroscopic surgery Major open surgery (> 45 min) Laparoscopic surgery (> 45 min) Malignancy Confined to bed (> 72 hours) Immobilizing plaster cast Central venous access Age >= 75 History of VTE Family history of VTE Factor V Leiden Prothrombin [id number] Lupus anticoagulant Anticardiolipin antibodies Elevated serum homocysteine Heparin-induced thrombocytopenia Other congenital or acquired thrombophilia Stroke (< 1 month) Elective arthroplasty Hip, pelvis, or leg fracture Acute spinal cord injury (< 1 month) Prophylaxis Regimen Total Risk Factor Score Risk Level Prophylaxis Regimen 0-1 Low Early ambulation 2 Moderate Order ONE of the following: *Sequential Compression Device (SCD) *Heparin 5000 units SQ BID 3-4 Higher Order ONE of the following medications: *Heparin 5000 units SQ TID *Enoxaparin/Lovenox 40 mg SQ daily (WT < 150 kg, CrCl > 30 mL/min) *Enoxaparin/Lovenox 30 mg SQ daily (WT < 150 kg, CrCl > 10-29 mL/min) *Enoxaparin/Lovenox 30 mg SQ BID (WT < 150 kg, CrCl > 30 mL/min) AND/OR *Sequential Compression Device (SCD) 5 or more Highest Order ONE of the following medications: *Heparin 5000 units SQ TID (Preferred with Epidurals) *Enoxaparin/Lovenox 40 mg SQ daily (WT < 150 kg, CrCl > 30 mL/min) *Enoxaparin/Lovenox 30 mg SQ daily (WT < 150 kg, CrCl > 10-29 mL/min) *Enoxaparin/Lovenox 30 mg SQ BID (WT < 150 kg, CrCl > 30 mL/min) AND *Sequential Compression Device (SCD) Assessment and Plan Assessment and Plan //New onset seizure CT with no acute findings -Appears to have postictal state which is improving EEG ordered and pending. Neurology consulted. Appreciate assistance. /Diabetes mellitus. Chronic. Insulin sliding scale and diabetic diet. //COPD. Chronic. Continue home inhalers. //History of coronary artery disease, hypertension, hyperlipidemia, thyroid disease, anxiety, GERD Continue home medications. Hold as needed nitroglycerin. //prophylaxis. SCDs Discussed Condition With patient, nurse, ED physician. Physician Certification 2 Midnight Certification Type: Continued Stay Order for Inpatient Services OBSERVATION ONLY Estimated LOS (days): 2 OBSERVATION ONLY Post-Hospital Plan: Not yet determined Darryn Elmore MD Sep 16, 2017 23:52
--- NOTE | 2017-09-17 02:31 | HHI.HP ---
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 Patient remembers nothing of this, remembers waking up in the ER. She reports feeling all right. Denies any chest pain, shortness of breath, nausea, vomiting. Review of Systems Except as stated in HPI: all other systems reviewed are Neg Past Family Social History Past Medical History COPD Coronary artery disease Hyperlipidemia Hypertension Diabetes GERD Thyroid disease Past Surgical History Hernia repair and 59 Cholecystectomy Hysterectomy Partial thyroidectomy Reported Medications Atorvastatin 10 mg daily Fish oil 1200 mg daily Nitroglycerin as needed for chest pain Metoprolol 12.5 mg by mouth twice a day Aspirin 81 mg daily Gabapentin 300 mg by mouth twice a day Alprazolam 0.25 mg by mouth daily as needed Gabapentin 3 mg by mouth twice a day Symbicort Allergies: Coded Allergies: penicillin G (Unverified Allergy, Severe, RASH, 02/11/17) Family History Mother from pancreatic cancer. Father from stomach cancer. Brother with pancreatic cancer. Social History Nonsmoker. Nondrinker. Denies illicit drugs. Physical Exam Vital Signs Vital Signs Date Time Temp Pulse Resp B/P (MAP) Pulse Ox O2 Delivery O2 Flow Rate FiO2 09/16/17 17:28 98.0 83 14 147/67 (93) 98 09/16/17 17:00 81 18 149/67 (94) 98 09/16/17 13:45 97.6 92 14 129/60 (83) 96 Physical Exam GENERAL: This is a well-nourished, well-developed patient, in no apparent distress. SKIN: No rashes, ecchymoses or lesions. Cool and dry. HEAD: Atraumatic. Normocephalic. No temporal or scalp tenderness. EYES: Pupils equal round and reactive. Extraocular motions intact. No scleral icterus. No injection or drainage. ENT: Nose without bleeding, purulent drainage or septal hematoma. Throat without erythema, tonsillar hypertrophy or exudate. Uvula midline. Airway patent. NECK: Trachea midline. No JVD or lymphadenopathy. Supple, nontender, no meningeal signs. CARDIOVASCULAR: Regular rate and rhythm without murmurs, gallops, or rubs. RESPIRATORY: Clear to auscultation. Breath sounds equal bilaterally. No wheezes , rales, or rhonchi. GASTROINTESTINAL: Abdomen soft, non-tender, nondistended. No hepato-splenomegaly , or palpable masses. No guarding. MUSCULOSKELETAL: Extremities without clubbing, cyanosis, or edema. No joint tenderness, effusion, or edema noted. No calf tenderness. Negative Homans sign bilaterally. NEUROLOGICAL: Awake and alert. Cranial nerves II through XII intact. Motor and sensory grossly within normal limits. Five out of 5 muscle strength in all muscle groups. Normal speech. Laboratory Laboratory Tests Test 09/16/17 14:06 09/16/17 15:33 White Blood Count 7.7 Red Blood Count 4.81 Hemoglobin 15.1 Hematocrit 44.7 Mean Corpuscular Volume 93.0 Mean Corpuscular Hemoglobin 31.4 Mean Corpuscular Hemoglobin Concent 33.7 Red Cell Distribution Width 14.5 Platelet Count 178 Mean Platelet Volume 8.6 Neutrophils (%) (Auto) 69.6 Lymphocytes (%) (Auto) 18.6 Monocytes (%) (Auto) 8.0 Eosinophils (%) (Auto) 3.3 Basophils (%) (Auto) 0.5 Neutrophils # (Auto) 5.4 Lymphocytes # (Auto) 1.4 Monocytes # (Auto) 0.6 Eosinophils # (Auto) 0.3 Basophils # (Auto) 0.0 CBC Comment DIFF FINAL Differential Comment Blood Urea Nitrogen 16 Creatinine 1.06 Random Glucose 98 Total Protein 7.0 Albumin 3.5 Calcium Level 9.4 Alkaline Phosphatase 67 Aspartate Amino Transf (AST/SGOT) 31 Alanine Aminotransferase (ALT/SGPT) 29 Total Bilirubin 0.7 Sodium Level 142 Potassium Level 3.9 Chloride Level 108 Carbon Dioxide Level 25.0 Anion Gap 9 Estimat Glomerular Filtration Rate 49 Urine Color LIGHT-YELLOW Urine Turbidity CLEAR Urine pH 6.0 Urine Specific [place] 1.006 Urine Protein NEG Urine Glucose (UA) NEG Urine Ketones NEG Urine Occult Blood NEG Urine Nitrite NEG Urine Bilirubin NEG Urine Urobilinogen LESS THAN 2.0 Urine Leukocyte Esterase NEG Urine WBC 1 Urine Squamous Epithelial Cells 1 Microscopic Urinalysis Comment CULT NOT INDICATED Result Diagram: 09/16/17 1406 09/16/17 1406 Caprini VTE Risk Assessment Caprini Risk Assessment Model Point Value = 1 Point Value = 2 Point Value = 3 Point Value = 5 Age 41-60 Minor surgery BMI > 25 kg/m2 Swollen legs Varicose veins or History of unexplained or recurrent spontaneous Oral contraceptives or hormone replacement Sepsis (< 1 month) Serious lung disease, including pneumonia (< 1 month) Abnormal pulmonary function Acute myocardial infarction Congestive heart failure (< 1 month) History of inflammatory bowel disease Medical patient at bed rest Age 61-74 Arthroscopic surgery Major open surgery (> 45 min) Laparoscopic surgery (> 45 min) Malignancy Confined to bed (> 72 hours) Immobilizing plaster cast Central venous access Age >= 75 History of VTE Family history of VTE Factor V Leiden Prothrombin [id number] Lupus anticoagulant Anticardiolipin antibodies Elevated serum homocysteine Heparin-induced thrombocytopenia Other congenital or acquired thrombophilia Stroke (< 1 month) Elective arthroplasty Hip, pelvis, or leg fracture Acute spinal cord injury (< 1 month) Prophylaxis Regimen Total Risk Factor Score Risk Level Prophylaxis Regimen 0-1 Low Early ambulation 2 Moderate Order ONE of the following: *Sequential Compression Device (SCD) *Heparin 5000 units SQ BID 3-4 Higher Order ONE of the following medications: *Heparin 5000 units SQ TID *Enoxaparin/Lovenox 40 mg SQ daily (WT < 150 kg, CrCl > 30 mL/min) *Enoxaparin/Lovenox 30 mg SQ daily (WT < 150 kg, CrCl > 10-29 mL/min) *Enoxaparin/Lovenox 30 mg SQ BID (WT < 150 kg, CrCl > 30 mL/min) AND/OR *Sequential Compression Device (SCD) 5 or more Highest Order ONE of the following medications: *Heparin 5000 units SQ TID (Preferred with Epidurals) *Enoxaparin/Lovenox 40 mg SQ daily (WT < 150 kg, CrCl > 30 mL/min) *Enoxaparin/Lovenox 30 mg SQ daily (WT < 150 kg, CrCl > 10-29 mL/min) *Enoxaparin/Lovenox 30 mg SQ BID (WT < 150 kg, CrCl > 30 mL/min) AND *Sequential Compression Device (SCD) Assessment and Plan Assessment and Plan //New onset seizure CT with no acute findings -Appears to have postictal state which is improving EEG ordered and pending. Neurology consulted. Appreciate assistance. /Diabetes mellitus. Chronic. Insulin sliding scale and diabetic diet. //COPD. Chronic. Continue home inhalers. //History of coronary artery disease, hypertension, hyperlipidemia, thyroid disease, anxiety, GERD Continue home medications. Hold as needed nitroglycerin. Darryn Elmore MD Sep 17, 2017 02:31
[2017-09-17] MEDS ORDERED: LEVOTHYROXINE SODIUM 88 MCG TAB PO SCH (07:00)
--- NOTE | 2017-09-17 07:55 | HHI.DCPOC ---
Discharge Care Plan Diagnosis: (1) possible seizure (2) Episode of shaking Goals to Promote Your Health * To prevent worsening of your condition and complications * To maintain your health at the optimal level Directions to Meet Your Goals Take your medications as prescribed Follow your dietary instruction Follow activity as directed Keep your appointments as scheduled Take your immunizations and boosters as scheduled If your symptoms worsen call your PCP, if no PCP go to Urgent Care Center or Emergency Room Smoking is Dangerous to Your Health. Avoid second hand smoke Call the 24-hour hour crisis hotline for domestic abuse at Sarah Velazco PA-C Sep 17, 2017 7:54 am
[2017-09-17] MEDS: INSULIN ASPART SUPPLEMENTAL SCALE SQ SCH ×2 (08:00→12:00)
[2017-09-17 08:20] VITALS: BP 137/63; PULSE 74; RESP 16; TEMP 97.7; O2SAT 95
[2017-09-17] MEDS ORDERED: BUDESONIDE-FORMOTEROL 160/4.5 MCG INHALER INH SCH (09:00)
[2017-09-17] MEDS ORDERED: ASPIRIN 81 MG CHEW TAB CHEW SCH (09:00)
[2017-09-17] MEDS: GABAPENTIN 300 MG CAP PO SCH (09:53)
[2017-09-17] MEDS: SODIUM CHLORIDE 0.9% FLUSH 10 ML FLUSH IV FLUSH SCH (09:53)
[2017-09-17] MEDS: METOPROLOL TARTRATE 25 MG TAB PO SCH (09:53)
--- NOTE | 2017-09-17 10:53 | HHI.DS ---
Discharge Summary Admission Date Sep 16, 2017 at 15:29 Discharge Date: Sep 17, 2017 Admitting Diagnosis tremor episode (1) Episode of shaking ICD Code: R25.1 - Tremor, unspecified Status: Acute (2) COPD with acute exacerbation ICD Code: J44.1 - Chronic obstructive pulmonary disease with (acute) exacerbation Status: Resolved (3) Non-ST elevation MS (NSTEMI) ICD Code: I21.4 - Non-ST elevation (NSTEMI) myocardial infarction Status: Resolved (4) Community acquired bacterial pneumonia ICD Code: J15.9 - Unspecified bacterial pneumonia Status: Acute Procedures No procedure Brief History - From Admission 87-year-old female with a history of coronary artery disease, COPD, hypertension , thyroid disease, who presents having experienced 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 Patient remembers nothing of this, remembers waking up in the ER. She reports feeling all right. Denies any chest pain, shortness of breath, nausea, vomiting. CBC/BMP: 09/16/17 1406 09/16/17 1406 Significant Findings Laboratory Tests Test 09/16/17 14:06 09/16/17 15:33 Creatinine 1.06 MG/DL (0.50-1.00) Chloride Level 108 MEQ/L (98-107) Estimat Glomerular Filtration Rate 49 ML/MIN (>89) Imaging Last Impressions Head CT 09/16/17 0000 Signed Impressions: Service Date/Time: Saturday, September 16, 2017 13:50 - CONCLUSION: 1. No acute intracranial hemorrhage. 2. Bilateral cortical atrophy and chronic white matter changes. Andrew Dominguez MD PE at Discharge GENERAL: This is a well-nourished, well-developed patient, in no apparent distress. disoriented. CARDIOVASCULAR: Regular rate and rhythm without murmurs, gallops, or rubs. RESPIRATORY: Clear to auscultation. Breath sounds equal bilaterally. No wheezes , rales, or rhonchi. GASTROINTESTINAL: Abdomen soft, non-tender, nondistended. No hepato-splenomegaly , or palpable masses. No guarding. MUSCULOSKELETAL: Extremities without clubbing, cyanosis, or edema. No joint tenderness, effusion, or edema noted. No calf tenderness. Negative Homans sign bilaterally. NEUROLOGICAL: Awake and alert. Cranial nerves II through XII intact. Motor and sensory grossly within normal limits. Five out of 5 muscle strength in all muscle groups. Normal speech. Hospital Course New onset seizure CT with no acute findings Appears to have postictal state. Resolved. No seizures overnight EEG is normal Neurology consulted. Appreciate assistance. If EEG normal the patient can be discharged home Patient to reschedule the appointment with cardiology as OP Diabetes mellitus 2. Chronic. Insulin sliding scale and diabetic diet. COPD. Chronic. Continue home inhalers. History of coronary artery disease, hypertension, hyperlipidemia, thyroid disease, anxiety, GERD Continue home medications. Hold as needed nitroglycerin. DVT prophylaxis. SCDs Discussed Condition With patient, nurse Patient improved, back at baseline. No seizures since admission. EKG is normal. And cleared by neurology for discharge. Discharge home in stable condition follow-up as outpatient with PCP and consultants. Pt Condition on Discharge: Stable Discharge Disposition: Disch w/ Home Health Serv Discharge Time: > 30 minutes Discharge Instructions DIET: Follow Instructions for: Heart Healthy Diet, Diabetic Diet Activities you can perform: Regular-No Restrictions Follow up Referrals: Neurology - 1 Week with Dali Arita MD PCP Follow-up - 2-3 Days with Zi Campa MD Continued Medications: Alprazolam (Alprazolam) 0.25 Mg Tab 0.25 MG PO DAILY PRN for ANXIETY, TAB 0 Refills Aspirin (Aspirin) 81 Mg Chew 81 MG CHEW DAILY, TAB 0 Refills Atorvastatin (Atorvastatin) 10 Mg Tab 10 MG PO HS for Cholesterol Management, #30 TAB 0 Refills Budesonide-Formoterol Inh (Symbicort Inh) 160-4.5 Mcg/Act Aero 2 PUFF INH Q12HR, #1 INHALER 3 Refills Calcium Carbonate (Calcium) 600 Mg Tab 1 TAB PO DAILY Cholecalciferol (Vitamin D-3) 1,000 Unit Cap 1 TAB PO DAILY Cyanocobalamin (Vitamin B12) 500 Mcg Tab 1000 MCG PO DAILY, #1 BOTTLE Fluticasone-Salmeterol Inh (Advair Diskus Inh) 250-50 Mcg/Blist Aer 1 PUFF INH BID for Breathing Treatment, #1 INHALER 3 Refills Rinse mouth after use. Gabapentin (Gabapentin) 300 Mg Cap 300 MG PO BID for Pain Management, #60 CAP 0 Refills Levothyroxine (Levothyroxine) 88 Mcg Tab 88 MCG PO DAILY for Thyroid, #30 TAB 0 Refills Metformin ER (Metformin ER) 500 Mg Terrance 500 MG PO DAILY for Blood Sugar Management, TAB 0 Refills With evening meal Metoprolol Tartrate (Metoprolol Tartrate) 25 Mg Tab 12.5 MG PO BID, #60 TAB 0 Refills Multiple Vitamin (Multi Vitamin Daily) 1 Tab Tab 1 TAB PO DAILY Nitroglycerin SL (Nitroglycerin SL) 0.4 Mg Subl 0.4 MG SL DIRECTED PRN for CHEST PAIN, #100 TAB.SL 0 Refills ONE TABLET UNDER THE TONGUE NEEDED FOR CHEST PAIN, MAY REPEAT EVERY FIVE MINUTES FOR A TOTAL OF 3 DOSES OR CALL 911 IF NO RELIEF [place]-3 Fatty Acids (Fish Oil 1200 mg) 1 Cap Cap 1 CAP PO DAILY Discontinued Medications: Fluticasone-Salmeterol 12 GM Inh (Advair Hfa 12 GM Inh) 115-21 Mcg/Act Aer 2 PUFF INH BID, #1 INHALER 0 Refills Meggan Powers MD Sep 17, 2017 10:53
--- NOTE | 2017-09-17 11:01 | HHI.PR ---
Subjective Remarks The patient is she appears not acute distress at this time. Says she feels much better. She is not recalling the incident yesterday. Says never had these problems do not feel lightheaded, any tremors. Eating well. No nausea or vomiting no diarrhea constipation. Since yesterday she seems lunch but thinks her blood sugar was not low. No nausea or vomiting, no constipation. No motor deficit. No change in vision. No seizures or tremors. Objective Vitals Vital Signs Date Time Temp Pulse Resp B/P (MAP) Pulse Ox O2 Delivery O2 Flow Rate FiO2 09/17/17 08:20 97.7 74 16 137/63 (87) 95 09/16/17 17:28 98.0 83 14 147/67 (93) 98 09/16/17 17:00 81 18 149/67 (94) 98 09/16/17 13:45 97.6 92 14 129/60 (83) 96 Result Diagram: 09/16/17 1406 09/16/17 1406 Imaging Last Impressions Head CT 09/16/17 0000 Signed Impressions: Service Date/Time: Saturday, September 16, 2017 13:50 - CONCLUSION: 1. No acute intracranial hemorrhage. 2. Bilateral cortical atrophy and chronic white matter changes. Andrew Dominguez MD Objective Remarks GENERAL: This is a well-nourished, well-developed patient, in no apparent distress. disoriented. CARDIOVASCULAR: Regular rate and rhythm without murmurs, gallops, or rubs. RESPIRATORY: Clear to auscultation. Breath sounds equal bilaterally. No wheezes , rales, or rhonchi. GASTROINTESTINAL: Abdomen soft, non-tender, nondistended. No hepato-splenomegaly , or palpable masses. No guarding. MUSCULOSKELETAL: Extremities without clubbing, cyanosis, or edema. No joint tenderness, effusion, or edema noted. No calf tenderness. Negative Homans sign bilaterally. NEUROLOGICAL: Awake and alert. Cranial nerves II through XII intact. Motor and sensory grossly within normal limits. Five out of 5 muscle strength in all muscle groups. Normal speech. A/P Assessment and Plan New onset seizure CT with no acute findings Appears to have postictal state. Resolved. No seizures overnight EEG ordered and pending. Neurology consulted. Appreciate assistance. If EEG normal the patient can be discharged home Diabetes mellitus 2. Chronic. Insulin sliding scale and diabetic diet. COPD. Chronic. Continue home inhalers. History of coronary artery disease, hypertension, hyperlipidemia, thyroid disease, anxiety, GERD Continue home medications. Hold as needed nitroglycerin. DVT prophylaxis. SCDs Discussed Condition With patient, nurse Discharge plan: Discharge home if EEG normal Meggan Powers MD Sep 17, 2017 11:01
[2017-09-17 12:10] VITALS: BP 133/64; PULSE 67; TEMP 98; O2SAT 93
--- NOTE | 2017-09-17 15:36 | MG ---
cc: Sheldon Hudson MD, PhD TEST NUMBER: [id number] TECHNIQUE: 17-channel EEG. DESCRIPTION: The background rhythm reveals a symmetrical alpha rhythm frequency of about 9 Hz. Amplitude is roughly 20-30 microvolts. There is occasional eye movement artifact and muscle artifact present. There are no lateralizing features present and there are no epileptiform features present. Some slowing is identified bilaterally in the theta range, probably related to drowsiness. Hyperventilation was not performed. Photic stimulation was performed in a stepwise fashion with a symmetric driving response. INTERPRETATION: This is a normal EEG. Sheldon Hudson MD, PhD HAWK/TL , 03:20 PM , 03:34 PM
--- NOTE | 2017-09-17 20:44 | EKG ---
Date Performed: 09/16/2017 Time Performed: 15:52:02 PTAGE: 87 years EKG: Sinus rhythm LOW QRS VOLTAGE IN PRECORDIAL LEADS BORDERLINE ECG INTERPRETATION BASED ON A DEFAULT AGE OF 38 YEARS NO PREVIOUS TRACING DOCTOR: Riley Devries Interpretating Date/Time 09/17/2017 20:43:46
== END 2017-09-17 16:48 | disposition home or self-care (01) ==
LOC: NEDAMB 12:57 → NEDA 15:29 → NEPGCP 17:34
PROVIDERS: ADMIT Hospitalist; ATTEND Hospitalist
DX: R56.9 Unspecified convulsions (principal); I21.4 Non-ST elevation (NSTEMI) myocardial infarction; J44.1 Chronic obstructive pulmonary disease with (acute) exacerbation; J44.0 Chronic obstructive pulmonary disease with (acute) lower respiratory infection; J15.9 Unspecified bacterial pneumonia; E11.9 Type 2 diabetes mellitus without complications; I25.10 Atherosclerotic heart disease of native coronary artery without angina pectoris; I10 Essential (primary) hypertension; E78.00 Pure hypercholesterolemia, unspecified; K21.9 Gastro-esophageal reflux disease without esophagitis; E07.9 Disorder of thyroid, unspecified; G31.9 Degenerative disease of nervous system, unspecified; Z79.899 Other long term (current) drug therapy; Z79.82 Long term (current) use of aspirin
CPT/HCPCS: 70450; 80053; 81001; 82948; 85025; 93005; 95819; 97162; 99285; G0378; G8987; G8988; J2060